=== PATIENT | male | born 1955 | race African-American/Black ===

== ENCOUNTER 2018-05-31 13:33 | Inpatient (IN) ==
[2018-05-31 14:36] LABS: BILIRUBIN URINE NEGATIVE (NEGATIVE); BLOOD URINE TRACE (NEGATIVE); CLARITY CLEAR (CLEAR); COLOR YELLOW; KETONE URINE 2+(Moderate) mg/dL (NEGATIVE); LEUKOCYTES URINE TRACE (NEGATIVE); NITRITE URINE NEGATIVE (NEGATIVE); PROTEIN URINE NEGATIVE (NEGATIVE); SP GRAVITY URINE 1.015; URINE BACTERIA 1+ /HFP; URINE CAST NONE SEEN /LPF; URINE CRYSTAL NONE SEEN /HPF; URINE EPITHELIAL CELLS <10 /HPF (<10); URINE RBC <10 /HPF (<10); URINE SOURCE CLEAN CATCH; URINE WBC <10 /HPF (<10); URINE YEAST NONE SEEN /HPF; UROBILINOGEN URINE NORMAL
[2018-05-31 14:47] LABS: UR AMPHETAMINES QUAL NONE DETECTED (NONE DETECT); UR BARBITUATES QUAL NONE DETECTED (NONE DETECT); UR BENZODIAZEPIN QUAL NONE DETECTED (NONE DETECT); UR CANNABINOIDS QUAL NONE DETECTED (NONE DETECT); UR COCAINE QUAL NONE DETECTED (NONE DETECT); UR METHADONE QUAL NONE DETECTED (NONE DETECT); UR METHAMPHETAMINE QUAL NONE DETECTED (NONE DETECT); UR OPIATES QUAL NONE DETECTED (NONE DETECT); UR OXYCODONE QUAL NONE DETECTED (NONE DETECT); UR PCP QUAL NONE DETECTED (NONE DETECT); UR PROPOXYPHENE QUAL NONE DETECTED (NONE DETECT); UR TCA QUAL NONE DETECTED (NONE DETECT)
[2018-05-31 15:17] LABS: AGAP 15; ALBUMIN 3.1 g/dL (3.5-5.0); ALKALINE PHOSPHATASE 102 U/L (32-122); BUN 9 mg/dL (8-22); CALCIUM 7.9 mg/dL (8.8-10.2); CHLORIDE 93 mmol/L (98-107); COSMO 276; CREATININE 0.9 mg/dL (0.7-1.2); ESTIMATED GFR > 60; GLUCOSE 197 mg/dL (70-104); GOT 22 U/L (10-34); GPT 12 U/L (10-44); POTASSIUM 2.9 mmol/L (3.5-5.1); SODIUM 136 mmol/L (136-145); TCO2 28 mmol/L (25-35); TOTAL PROTEIN 6.5 g/dL (6.3-8.3)
[2018-05-31 15:22] LABS: BASO# 0.07 X1000 (0.0-0.2); BASO% 0.3 % (0.0-0.8); EOS# 0.09 X1000 (0.0-0.7); EOS% 0.3 % (0.0-10.0); HEMATOCRIT 33.9 % (42.0-52.0); HEMOGLOBIN 11.2 g/dL (14.0-18.0); IMM GRAN# 0.12 X1000 (0.0-0.04); IMM GRAN% 0.4 % (0.0-0.5); LYMPH# 3.31 X1000 (1.2-3.4); LYMPH% 12.4 % (20.5-51.1); MCH 24.7 PG (27-31); MCV 74.7 FL (81-99); MONO# 1.01 X1000 (0.11-0.59); MONO% 3.8 % (1.7-9.3); MPV 9.4 FL (7.4-10.4); NEUT# 22.08 X1000 (1.4-6.5); NEUT% 82.8 % (42.2-75.2); PLT 462 X1000 (130-400); RBC 4.54 XMIL (4.7-6.1); RDW 14.9 % (11.5-14.5); WBC 26.68 X1000 (4.8-10.8)
[2018-05-31 15:23] LABS: LYMPHS 12 % (21-51); MICROCYTOSIS 3+; MONO 4 % (1-9); SEGS 84 % (42-75)
[2018-05-31 15:53] LABS: CK INDEX 1.1 (0.0-2.5); CK-MB 6.17 ng/mL (0.0-5.0)
[2018-05-31] MEDS ORDERED: NS 1,000 ML IV ONE ×3 (16:31→20:14)
[2018-05-31] MEDS ORDERED: KLOR-CON PO ONE (16:31)
--- NOTE | 2018-05-31 16:39 | Diag Imaging Result Doc PS360 ---
EXAM: CT HEAD W/O CONTRAST INDICATION: ams TECHNIQUE: This exam was performed using automated exposure control, adjustment of mA or kV according to patient size, and/or use of iterative reconstruction technique. COMPARISON: 07/28/2017 FINDINGS: There is no definite acute infarct given the limited sensitivity of CT versus MRI. There is no discrete intracranial mass, mass effect, or intracranial hemorrhage. There is mild stable chronic mucosal thickening involving the ethmoid sinuses. Surrounding soft tissues and bony structures are essentially unremarkable, otherwise. IMPRESSION: Stable CT head with no evidence of acute pathology. Electronically signed by Trey Maier 05/31/2018 4:37 PM
--- NOTE | 2018-05-31 16:53 | Diag Imaging Result Doc PS360 ---
EXAM: CHEST-2 VIEWS INDICATION: chest pain TECHNIQUE: 2 views COMPARISON: 08/01/2017 FINDINGS: There is stable mild elevation of the right hemidiaphragm and stable linear atelectasis versus scarring at the right lung base. The lungs are grossly clear, otherwise. There is no discrete pleural fluid collection or pneumothorax. The cardiomediastinal silhouette and central vasculature are grossly unremarkable. IMPRESSION: Stable right basilar atelectasis versus scarring. No definite acute pathology, otherwise. Electronically signed by Trey Maier 05/31/2018 4:51 PM
[2018-05-31 17:05] LABS: UR AMPHETAMINES QUAL NONE DETECTED (NONE DETECT); UR BARBITUATES QUAL NONE DETECTED (NONE DETECT); UR BENZODIAZEPIN QUAL NONE DETECTED (NONE DETECT); UR CANNABINOIDS QUAL NONE DETECTED (NONE DETECT); UR COCAINE QUAL NONE DETECTED (NONE DETECT); UR METHADONE QUAL NONE DETECTED (NONE DETECT); UR METHAMPHETAMINE QUAL NONE DETECTED (NONE DETECT); UR OPIATES QUAL NONE DETECTED (NONE DETECT); UR OXYCODONE QUAL NONE DETECTED (NONE DETECT); UR PCP QUAL NONE DETECTED (NONE DETECT); UR PROPOXYPHENE QUAL NONE DETECTED (NONE DETECT); UR TCA QUAL NONE DETECTED (NONE DETECT)
--- NOTE | 2018-05-31 17:11 | PROVIDER DOCUMENTATION ---
HPI-General Adult - General Chief Complaint: General Adult Stated Complaint: STROKE SX Time Seen by Provider: 05/31/18 15:33 Source: patient, family Allergies/Adverse Reactions: Patient Allergies Allergy/AdvReac Type Severity Reaction Status Date / Time No Known Allergies Allergy Verified 05/31/18 13:49 Home Medications: Home Medication List Medication Instructions Recorded Confirmed Last Taken Type NK [No Home Medications] 05/31/18 05/31/18 Unknown History - History of Present Illness -Gen Adult Nature of Presenting Problems: pt arrived to ED today with AMS, pt states he has pain in abdomen and chest. family reports pt has been acting different x 1 week. pt able to answer questions but laughs inappropriately and has lost his sense of balance. pt. family reports pt has been forgetting where he is going and they have been trying for a week to get him to come to the hospital. Review of Systems - Adult - REVIEW OF SYSTEMS - ADULT Constitutional: reports: no symptoms reported Eyes: reports: no symptoms reported Ears, Nose, Mouth & Throat: reports: no symptoms reported Cardiovascular: reports: see HPI, chest pain (atypical, x 1 week, no aggrivating or alleviating factors, sharp generalized) Respiratory: reports: no symptoms reported Gastrointestinal: reports: no symptoms reported Genitourinary: reports: no symptoms reported Musculoskeletal: reports: no symptoms reported Integumentary: reports: no symptoms reported Neurological: reports: see HPI Psychiatric: reports: see HPI Endocrine: reports: no symptoms reported Hematologic/Lymphatic: reports: no symptoms reported Allergic/Immunologic: reports: no symptoms reported All Other Systems: Reviewed and Negative Past History - Adult - PAST MEDICAL HISTORY-ADULT Review of Records: reports: Old Records Reviewed, Nursing Assessment Review, Medications Reviewed Major Childhood Illnesses: reports: denies history Cardiovascular: reports: denies history Respiratory: reports: denies history Gastrointestinal: reports: denies history Obstetrical/Gynecological: reports: denies history Genitourinary: reports: denies history Musculoskeletal: reports: denies history Neurological: reports: denies history Psychiatric: reports: psychiatric problems Endocrine/Immune: reports: denies history Other Conditions: reports: denies history - PRIOR SURGERIES/PROCEDURES Surgical/Procedure History: reports: none - IMMUNIZATION STATUS Childhood Immunizations: See Nurse Assessment Flu Vaccine: See Nurse Assessment - FAMILY HISTORY Family History: CVA/TIA (pt family reports pt has prior stroke) - SOCIAL HISTORY Smoking: denies Substance Use: none/never Alcohol Use Frequency: never Physical Exam-General - PHYSICAL EXAM-ADULT Initial Vital Signs Reviewed: Yes - CONSTITUTIONAL General Appearance: appears well, alert, other (pt has bizrre behavior but is cooperative with intermittant aggitation) - EYES Eyes: PERRL/EOMI, pink conjunctivae. negative: anisocoria, EOM palsy, photophobia, sclera injected, scleral icterus - HEAD, EARS, NOSE, MOUTH & THROAT HENMT: normocephalic/atraumatic, moist mucous membranes, normal ENT inspection, other (abrasion to lips from fall this AM) - NECK Neck: non-tender, full range of motion, supple - RESPIRATORY Respiratory: chest non-tender, lungs clear, normal breath sounds, no pleuratic chest pain, no respiratory distress, no accessory muscle use - CARDIOVASCULAR Cardiovascular: normal peripheral pulses, regular rate, rhythm, no edema - GASTROINTESTINAL (ABDOMEN) Abdominal Exam: normal bowel sounds, non tender, soft - LYMPHATIC Lymphatic: no adenopathy - MUSCULOSKELETAL Back Exam: normal inspection, no CVA tenderness, no vertebral tenderness Extremity: normal range of motion, non-tender - SKIN Integumentary: normal color, normal turgor, warm/dry - NEUROLOGIC Neurologic: grossly normal, no motor/sensory deficits, other (pt has loss of balance and memory deficits). negative: facial droop, focal weakness, motor weakness, sensory deficit - PSYCHIATRIC Psych/Mental Status: normal mood/affect, normal thought content, oriented x 3, other (see HPI) Progress - PLAN OF CARE/RESULTS Progress/Plan/Lab Results: Vital Signs - 8 hr 05/31/18 13:42 Temperature 97.8 F Pulse Rate 102 H Respiratory Rate 20 Blood Pressure 107/75 O2 Sat by Pulse Oximetry 97 Laboratory Results - last 24 hr 05/31/18 05/31/18 05/31/18 14:10 14:10 14:18 WBC RBC Hgb Hct MCV MCH MCHC RDW Std Deviation Plt Count MPV Immature Gran % (Auto) Neut % (Auto) Lymph % (Auto) Turner % (Auto) Eos % (Auto) Baso % (Auto) Immature Gran # (Auto) Neut # (Auto) Lymph # (Auto) Turner # (Auto) Eos # (Auto) Baso # (Auto) Segmented Neutrophils Lymphocytes Monocytes Microcytosis Sodium Potassium Chloride Carbon Dioxide Anion Gap BUN Creatinine Estimated GFR/1.73 m2 BUN/Creatinine Ratio Glucose Calculated Osmolality Calcium Total Bilirubin AST ALT Alkaline Phosphatase Creatine Kinase 538 H Creatine Kinase Index 1.1 CK-MB (CK-2) 6.17 H Troponin T Total Protein Albumin Globulin Albumin/Globulin Ratio Urine Source CLEAN CATCH Urine Color YELLOW Urine Clarity CLEAR Urine pH 5.0 Ur Specific [place] 1.015 Urine Protein NEGATIVE Urine Ketones 2+(Moderate) A Urine Blood TRACE Urine Nitrite NEGATIVE Urine Bilirubin NEGATIVE Urine Urobilinogen NORMAL Urine Microscopic RBC <10 Urine WBC TRACE A Urine Microscopic WBC <10 Ur Epithelial Cells <10 Urine Crystals NONE SEEN Urine Bacteria 1+ Urine Casts NONE SEEN Urine Yeast NONE SEEN Urine Glucose 3+(500 mg/dL) A Urine Opiates Screen NONE DETECTED Ur Oxycodone Screen NONE DETECTED Urine Methadone Screen NONE DETECTED U Propoxyphene Qual NONE DETECTED Ur Barbituates Screen NONE DETECTED Ur Tricyclics Screen NONE DETECTED Ur Phencyclidine Scrn NONE DETECTED Ur Amphetamines Screen NONE DETECTED U Methamphetamines Scrn NONE DETECTED U Benzodiazepines Scrn NONE DETECTED Urine Cocaine Screen NONE DETECTED U Cannabinoids Screen NONE DETECTED 05/31/18 05/31/18 05/31/18 14:18 14:18 14:18 WBC 26.68 H RBC 4.54 L Hgb 11.2 L Hct 33.9 L MCV 74.7 L MCH 24.7 L MCHC 33.0 RDW Std Deviation 14.9 H Plt Count 462 H MPV 9.4 Immature Gran % (Auto) 0.4 Neut % (Auto) 82.8 H Lymph % (Auto) 12.4 L Turner % (Auto) 3.8 Eos % (Auto) 0.3 Baso % (Auto) 0.3 Immature Gran # (Auto) 0.12 H Neut # (Auto) 22.08 H Lymph # (Auto) 3.31 Turner # (Auto) 1.01 H Eos # (Auto) 0.09 Baso # (Auto) 0.07 Segmented Neutrophils 84 H Lymphocytes 12 L Monocytes 4 Microcytosis 3+ Sodium 136 Potassium 2.9 L Chloride 93 L Carbon Dioxide 28 Anion Gap 15 BUN 9 Creatinine 0.9 Estimated GFR/1.73 m2 > 60 BUN/Creatinine Ratio 10 Glucose 197 H Calculated Osmolality 276 Calcium 7.9 L Total Bilirubin 0.40 AST 22 ALT 12 Alkaline Phosphatase 102 Creatine Kinase Creatine Kinase Index CK-MB (CK-2) Troponin T 0.023 Total Protein 6.5 Albumin 3.1 L Globulin 3.0 Albumin/Globulin Ratio 1.0 Urine Source Urine Color Urine Clarity Urine pH Ur Specific [place] Urine Protein Urine Ketones Urine Blood Urine Nitrite Urine Bilirubin Urine Urobilinogen Urine Microscopic RBC Urine WBC Urine Microscopic WBC Ur Epithelial Cells Urine Crystals Urine Bacteria Urine Casts Urine Yeast Urine Glucose Urine Opiates Screen Ur Oxycodone Screen Urine Methadone Screen U Propoxyphene Qual Ur Barbituates Screen Ur Tricyclics Screen Ur Phencyclidine Scrn Ur Amphetamines Screen U Methamphetamines Scrn U Benzodiazepines Scrn Urine Cocaine Screen U Cannabinoids Screen Orders Category Date Time Status Nursing- Obtain EKG once Care 05/31/18 13:52 Active CHEST-2 VIEWS [RAD] Stat Exams 05/31/18 13:[address] HEAD W/O CONTRAST [CT] Stat Exams 05/31/18 15:39 Completed BLOOD CULTURE [BLDCUL] Stat Lab 05/31/18 16:56 Ordered CBC WITH DIFF [HEME] Stat Lab 05/31/18 14:18 Completed CK PROFILE [SP CHEM] Stat Lab 05/31/18 14:18 Completed CMP [COMPREHENSIVE METABOLIC PANEL] [CHEM] Stat Lab 05/31/18 14:18 Completed LACTATE, PLASMA [CHEM] Stat Lab 05/31/18 16:56 Ordered TROPONIN T Stat Lab 05/31/18 14:18 Completed URINE CULTURE [RM] Routine Lab 05/31/18 14:36 Ordered URINE DRUG SCREEN PL Stat Lab 05/31/18 14:10 Completed URINE DRUG SCREEN PL Stat Lab 05/31/18 16:07 Ordered ua [URINALYSIS PL W/POSS RFLX CULT] [URINALYSIS] Stat Lab 05/31/18 14:10 Completed 0.9% Sodium Chloride Inj [Ns] 1,000 ml Med 05/31/18 16:31 Active IV 999 mls/hr Potassium Chloride E.r. [Klor-Con] Med 05/31/18 16:31 Discontinued 40 meq PO NOW ONE EKG [EKG] Stat Ther 05/31/18 15:[address] Jeffrey the need to admit patient for furthur observation, Dr Jeffrey agreed Result Diagrams: 05/31/18 14:18 05/31/18 14:18 - REASSESSMENT Reassessment #1 Status: unchanged - XRAY 1 XRAY Study: Chest Comparison with other Films: no changes (stable rt side atelectasis) - CT/MRI 1 CT Study: Head Impression: Normal Comparison with other Films: no changes CT Results: NAD - CONSULTS/PCP/HOSPITALIST Notification #1 *Consult/PCP/Hospitalist*: Dr Jeffrey Time Discussed: 18:48 Reason/Comments: admit to [facility] floor Consult Disposition: Admit Departure - Departure Date of Disposition Decision: 05/31/18 Time of Disposition Decision: 18:48 DIAGNOSIS: Encephalopathy acute, Chest pain, Leukocytosis, SIRS (systemic inflammatory response syndrome) Disposition: HOME 01 Certified Medical Emergency: Emergent Condition: Serious Referrals and Follow-Ups: None,PCP [Primary Care Provider] - - Critical Care Note This patient required my direct & personal management of CC.: No Attestation - Physician/ ALEXIS Attestation Patient care was provided by Advanced Practice Provider:: Yes Advanced Practice Provider:: Amena Lindquist Advanced Practice Provider documentation review:: The Mid-level provider documentation, treatment plan and medical decision making was reviewed by the physician who agrees with all treatment and medical decision making by the MLP. The physician spent face to face time with patient:: No Advanced Practice Provider documentation review:: Supervising physician onsite and consulted in the evaluation and care of this patient. The physician did not have a face to face encounter with the patient. - NIH Stroke Scale NIH Type: Initial Evaluation Level of Consciousness: 0-Alert LOC Questions (ask month and age): 0-Answers Both Correctly LOC Commands (ask to open & close eyes;make a fist, let go): 0-Obeys Both Correctly Best Gaze (horizontal eye movement): 0-Normal Visual (use finger movement, counting or visual threat): 0-No Visual Loss Facial Palsy (show teeth or raise eyebrows & close eyes tght: 0-Symmetrical Movement Motor Function-left arm: 0-Normal Motor Function-right arm: 0-Normal Motor Function-left le-Normal Motor Function-right le-Normal Limb Ataxia(yandfx-wgij-yrudge, or heel to tse): 2-Present in two limbs Sensory(pin prick to face,arms,trunk,legs-compare side/side): 0-No Ataxia Best Language(name item/read sentence.Ex-Down to Earth): 0-No Aphasia Dysarthria(Pt read words or say words Ex.Mama,Tip-Top,Thanks: 0-Normal Articulation Extinction and Inattention: 0-Normal NIH Total Score: 2 NIH Scale Untestable Comment: some ataxia may be due to aggitation and impulsive movments Modified [place] Score Criteria: 3-moderate disability (pt family reports pt has fallen a few times due to loss of balance and forgets where he is going)
[2018-05-31] MEDS ORDERED: ZOSYN 3.375 GM in NS 50 ML IV ONE (17:15)
[2018-05-31] MEDS ORDERED: VANCOMYCIN 1 GM/NS 1 GM/250 ML IVPB IV ONE (17:15)
[2018-05-31] MEDS ORDERED: ATIVAN IV ONE (17:19)
[2018-05-31] MEDS ORDERED: ZOFRAN IV PRN (20:14)
[2018-05-31] MEDS ORDERED: TYLENOL PO PRN (20:14)
[2018-05-31] MEDS ORDERED: STERILE WATER INJ. INJ PRN (20:22)
[2018-05-31] MEDS: GEODON IM PRN (21:12)
[2018-06-01] MEDS: ROCEPHIN 1 GM in NS 50 ML IV SCH (01:00)
[2018-06-01] MEDS: GEODON IM PRN ×2 (04:20→23:14)
[2018-06-01 07:52] LABS: ALBUMIN 2.6 g/dL (3.5-5.0); ALKALINE PHOSPHATASE 88 U/L (32-122); DIRECT BILIRUBIN < 0.20 mg/dL (0.00-0.20); GOT 15 U/L (10-34); GPT 10 U/L (10-44); TOTAL PROTEIN 5.5 g/dL (6.3-8.3)
[2018-06-01 10:16] LABS: BASO# 0.05 X1000 (0.0-0.2); BASO% 0.2 % (0.0-0.8); EOS# 0.13 X1000 (0.0-0.7); EOS% 0.6 % (0.0-10.0); HEMATOCRIT 31.1 % (42.0-52.0); HEMOGLOBIN 10.4 g/dL (14.0-18.0); IMM GRAN# 0.04 X1000 (0.0-0.04); IMM GRAN% 0.2 % (0.0-0.5); LYMPH# 1.47 X1000 (1.2-3.4); LYMPH% 7.2 % (20.5-51.1); MCH 25.6 PG (27-31); MCHC 33.4 g/dL (33-37); MCV 76.6 FL (81-99); MONO# 0.77 X1000 (0.11-0.59); MONO% 3.8 % (1.7-9.3); MPV 9.9 FL (7.4-10.4); NEUT# 17.94 X1000 (1.4-6.5); PLT 398 X1000 (130-400); RBC 4.06 XMIL (4.7-6.1); RDW 15.2 % (11.5-14.5)
[2018-06-01 10:22] LABS: AGAP 14; BUN 7 mg/dL (8-22); CALCIUM 7.2 mg/dL (8.8-10.2); CHLORIDE 99 mmol/L (98-107); COSMO 288; CREATININE 0.7 mg/dL (0.7-1.2); ESTIMATED GFR > 60; GLUCOSE 284 mg/dL (70-104); SODIUM 140 mmol/L (136-145); TCO2 27 mmol/L (25-35)
[2018-06-01 10:30] LABS: EOS 2 % (1-10); LYMPHS 5 % (21-51); MONO 4 % (1-9); SEGS 89 % (42-75)
--- NOTE | 2018-06-01 10:32 | HISTORY AND PHYSICAL ---
PRIMARY CARE PHYSICIAN: Unknown. HISTORY OF PRESENTING ILLNESS: This is a 63-year-old, male who presents to [facility] ER with family who reports he has had altered mental status and has been "acting different for about a week". Answers questions appropriately in the ER but laughed inappropriately. Had lost his sense of balance. Had been forgetting where he was going and family had been trying for a week to get him to come to the hospital. His workup showed a white blood cell count of 26.68, a potassium of 2.9, a creatine kinase of 538 with a CK-MB of 6.17, but a negative troponin at 0.023. Urinalysis was negative. Urine drug screen was negative x2 different samples. Serum alcohol level showed none detected. CT of the head was stable. CT with no evidence of acute pathology. His chest x-ray showed a stable right basilar atelectasis versus scarring but no definite acute pathology otherwise. He was admitted for further evaluation and treatment. Then this morning, prior to being seen, he became agitated and was trying to get up, was belligerent, fighting staff, confused, very disoriented, would not get back in the bed initially. The family was at bedside. He is noted when he drinks any fluids to start coughing and becomes choked. He has had a history of a CVA in June of 2017. He was given Geodon 10 mg IM. The patient is now asleep and unable to answer any of my questions. He does have a family member at the bedside that has limited knowledge in his care but is a family member, so he has been admitted for further evaluation and treatment. PAST MEDICAL HISTORY: CVA and diabetes type 2. PAST SURGICAL HISTORY: None. FAMILY HISTORY: Reviewed and noncontributory. SOCIAL HISTORY: Currently lives with his . Denies any tobacco, alcohol, or illicit drug use. ALLERGIES: He has no known drug allergies. HOME MEDICATIONS: None are listed currently. I will have the nurse to check and make sure an update and confirm his home medications. LABORATORY DATA: Showed a white blood cell count of 26.68, hemoglobin 11.2, hematocrit 33.9, platelets 462,000. Sodium was 136, potassium 2.9, chloride 93, CO2 28, BUN of 9, creatinine 0.9, glucose 197. Creatine kinase was 538, CK-MB of 6.17, with a negative troponin of 0.023. Plasma lactate of 1.4. Free T4 of 1.10. Urinalysis was negative except for 1+ bacteria. Urine drug screens x2 samples were all negative. Serum alcohol level showed none detected. CT of the head showed a stable CT of the head with no evidence of acute pathology. Chest x-ray showed a stable right basilar atelectasis versus scarring. No definite acute pathology otherwise. REVIEW OF SYSTEMS: Unable to obtain from patient at this time. PHYSICAL EXAMINATION: VITAL SIGNS: On arrival, he had a temperature of 97.8 degrees, a pulse of 102, respirations 20, blood pressure 107/75, saturating 97% on room air. GENERAL: This is a 63-year-old, male who is lying in the bed and is lethargic due to receiving some Geodon this morning due to agitation and combativeness. HEENT: Appears normocephalic, atraumatic. Normal ENT inspection. Oropharynx and nares are clear. Eyes: Pupils are equal, round, and reactive to light and accommodation. Unable to assess extraocular movements at this time. NECK: Normal inspection. Normal range of motion. LUNGS: Clear to auscultation bilaterally with equal lung expansion and chest wall movement. HEART: With regular rate and rhythm. No murmurs, rubs, or gallops. ABDOMEN: Soft, nontender, nondistended. Bowel sounds are present x4 quadrants. MUSCULOSKELETAL: He had 5/5 strength according to staff as he was up trying to leave his room and was agitated and fighting the staff this morning. NEUROLOGICAL: Unable to obtain at this time due to being lethargic after receiving medication for his agitation. ASSESSMENT: 1. Altered mental status. 2. Leukocytosis. 3. Hypokalemia. 4. Previous cerebrovascular accident with dysphagia. PLAN: He was admitted to the medical unit. Placed on aspiration precautions. Pattern blood sugars with sliding scale insulin. Placed on telemetry. O2 per protocol. He is on a clear liquid diet but I think he is going to need a speech therapy consult in the a.m. to ensure that he is not doing any aspirating. Blood cultures x2 are pending. We will check a C-reactive protein, folate, hepatic function. I am going to recheck a CBC and a BMP this morning. Check iron studies. Placed on Ativan 2 mg IV q.4 hours p.r.n., Zofran 4 mg IV q.4 hours p.r.n., Rocephin 1 gram IV q.24, and Geodon 10 mg IM q.4 hours p.r.n. He did receive potassium 40 mEq p.o. x1 in the emergency room. Again, we will have nursing to update and confirm any home medications he may take if possible. Further orders after being seen by attending. I also think we need to check an MRI of the brain with and without contrast in the a.m. Dictated by ROLA Oneill for Moi Jeffrey MD cc: ROLA Oneill MD
[2018-06-01] MEDS ORDERED: POTASSIUM CHLORIDE 20% LIQUID PO ONE (10:36)
[2018-06-01] MEDS: NS + KCL 40 MEQ 1,000 ML IV SCH (14:53)
[2018-06-01 15:21] LABS: C REACTIVE PROT QUANT 103.52 mg/L (0.00-5.00)
--- NOTE | 2018-06-01 17:21 | PROGRESS NOTE ---
DATE: 06/01/2018 SUBJECTIVE: The patient has no major complaints. OBJECTIVE: Vital signs: Blood pressure is 135/73, heart rate 104, respiratory rate of 20, temperature 98.4. Cardiovascular: Regular rate and rhythm. Pulmonary: Bilateral breath sounds clear to auscultation. Gastrointestinal: Soft, nontender, nondistended. Bowel sounds are positive. LABORATORY DATA: 1. White count of 20, hemoglobin 10, hematocrit 31, platelets were stable. Potassium is 3. ASSESSMENT AND PLAN: 1. In any case, the patient has acute encephalopathy, really a nonfocal neurological exam. It is just not clear what is going on. I did see him yesterday evening. H P is dated today, though. He has a previous CVA so clinically most likely, I think it would be a recurrent CVA with some sort of vascular dementia. His head CT is negative. He also has some unexplained leukocytosis. I do not think he has got any encephalitis. He has no fever. No neck pain. No headache. He is just kind of confused, and he has just had a profound behavioral change that has impacted his psychiatric/psychological functioning. He is normal. He is not an abnormal fellow. He does have some I think stroke-related weakness, but he has never had a personality change, and now, he has been arrested by the police on concern over public intoxication. He per family does not abuse any medications. Urine drug screen here was negative. Very unclear what is causing this. I did pursue MRI, and I think unfortunately not to tax the Neurology service, but I think they need to evaluate him because this is a complicated case, and we will attempt to get a consult tomorrow. 2. Leukocytosis. It is not clear where the etiology is unless it is primarily associated with what else is going on with him. I have empirically started Rocephin, but chest x-ray, blood cultures, and urine are all clear. He does have very elevated CRP. Again, I do not think this is meningeal encephalitis. If he has fever, that may change our etiology. I am going to pursue the CT of the chest. If that is unrevealing, then we will do an abdominal and pelvic CT to evaluate for anything else there, but this is a very unusual case. 3. We have had to sedate him because we cannot keep him in the bed. He wants to go home, but his family says it is not safe for him at home, and they were concerned about violence. Once he has been medically cleared and he still has behavioral issues, we may have to get psychiatric input. cc: Moi Jeffrey MD MTDD
[2018-06-01] MEDS: ATIVAN IV PRN (19:50)
[2018-06-02] MEDS: ROCEPHIN 1 GM in NS 50 ML IV SCH (00:06)
[2018-06-02] MEDS: ATIVAN IV PRN ×4 (02:58→23:01)
[2018-06-02] MEDS: NS + KCL 40 MEQ 1,000 ML IV SCH ×3 (04:14→17:33)
[2018-06-02 06:40] LABS: BASO# 0.04 X1000 (0.0-0.2); BASO% 0.3 % (0.0-0.8); EOS# 0.12 X1000 (0.0-0.7); EOS% 0.8 % (0.0-10.0); HEMATOCRIT 31.1 % (42.0-52.0); HEMOGLOBIN 9.9 g/dL (14.0-18.0); IMM GRAN# 0.04 X1000 (0.0-0.04); IMM GRAN% 0.3 % (0.0-0.5); LYMPH# 1.82 X1000 (1.2-3.4); LYMPH% 12.2 % (20.5-51.1); MCH 24.6 PG (27-31); MCHC 31.8 g/dL (33-37); MCV 77.4 FL (81-99); MONO# 0.82 X1000 (0.11-0.59); MONO% 5.5 % (1.7-9.3); MPV 9.8 FL (7.4-10.4); NEUT# 12.08 X1000 (1.4-6.5); NEUT% 80.9 % (42.2-75.2); PLT 471 X1000 (130-400); RBC 4.02 XMIL (4.7-6.1); RDW 15.3 % (11.5-14.5); WBC 14.92 X1000 (4.8-10.8)
[2018-06-02 07:21] LABS: IRON SATURATION 9 %; TIBC 191 ug/dL; TOTAL IRON 18 ug/dL (53-167); UNBOUND IRON 173 ug/dL (112-346)
[2018-06-02 07:24] LABS: AGAP 10; BUN 3 mg/dL (8-22); CALCIUM 7.4 mg/dL (8.8-10.2); CHLORIDE 103 mmol/L (98-107); COSMO 289; CREATININE 0.8 mg/dL (0.7-1.2); ESTIMATED GFR > 60; GLUCOSE 240 mg/dL (70-104); POTASSIUM 3.2 mmol/L (3.5-5.1); SODIUM 143 mmol/L (136-145); TCO2 30 mmol/L (25-35)
[2018-06-02] MEDS ORDERED: KLOR-CON PO ONE (07:38)
--- NOTE | 2018-06-02 08:32 | Diag Imaging Result Doc PS360 ---
CT THORAX W/CONTRAST - 06/02/2018 INDICATION: pneumonia COMPARISON: 07/28/2017, 05/31/2018 FINDINGS: There are trace bilateral pleural effusions. Heart size is normal with no pericardial effusion. There is some slight calcified vascular disease of the descending aortic arch. There are some shotty mediastinal lymph nodes but no focal adenopathy. There is bilateral gynecomastia. There is some faint hazy infiltrate throughout the right upper lobe and both lower lobes. There is wall thickening of the esophagus compatible with esophagitis. The gallbladder demonstrates severe wall thickening and some surrounding inflammation. There is no biliary dilation in the liver. Upper abdominal images are otherwise unremarkable. There are moderate degenerative changes of the spine. No acute or suspicious bony lesion. IMPRESSION: 1. Severely abnormal gallbladder with wall thickening and inflammation. Cholecystitis is suspected. 2. Faint nonspecific bilateral infiltrates. 3. Trace bilateral pleural effusions. 4. Wall thickening throughout the esophagus suggesting esophagitis. This exam was performed using automated exposure control, adjustment of mA or kV according to patient size, and/or use of iterative reconstruction technique Electronically signed by Alvin Courtney 06/02/2018 8:30 AM
[2018-06-02] MEDS ORDERED: SODIUM CHLORIDE 0.9% INJ SCH (09:15)
[2018-06-02] MEDS ORDERED: PROTONIX IV SCH (09:15)
--- NOTE | 2018-06-02 09:30 | Diag Imaging Result Doc PS360 ---
EXAM: MRI BRAIN W/WO CONTRAST HISTORY: AMS TECHNIQUE: Multisequence multiplanar MRI of the brain with and without contrast. COMPARISON: CT brain 05/31/2018, MRI brain 07/29/2017 FINDINGS: There are no extra-axial collections. There is no abnormal signal within the brainstem, cerebellum, or cerebral hemispheres. Diffusion images show no evidence for acute infarct. Susceptibility images show no evidence for hemorrhage. Stable mucosal disease involving ethmoid sinuses and mucous retention cyst or polyp left maxillary sinus. There are no abnormal regions of contrast enhancement. IMPRESSION: Paranasal sinus disease. No acute intracranial abnormality. Electronically signed by Celia Montes 06/02/2018 9:27 AM
--- NOTE | 2018-06-02 09:32 | EKG Report ---
Test Performed on : 05/31/2018 6:03:13 PM Test Reason : CP Blood Pressure : / mmHG Vent. Rate : 097 BPM Atrial Rate : 097 BPM P-R Int : 146 ms QRS Dur : 092 ms QT Int : 386 ms P-R-T Axes : 068 016 017 degrees QTc Int : 490 ms Normal sinus rhythm. Possible Left atrial enlargement Prolonged QT Abnormal ECG When compared with ECG of 31-MAY-2018 13:59, (Unconfirmed) No significant change was found Unconfirmed Result
--- NOTE | 2018-06-02 09:32 | EKG Report ---
Test Performed on : 05/31/2018 1:59:39 PM Test Reason : CP Blood Pressure : / mmHG Vent. Rate : 093 BPM Atrial Rate : 093 BPM P-R Int : 140 ms QRS Dur : 098 ms QT Int : 378 ms P-R-T Axes : 062 000 030 degrees QTc Int : 469 ms Normal sinus rhythm. Possible Left atrial enlargement Borderline ECG When compared with ECG of 01-AUG-2017 14:00, No significant change was found Unconfirmed Result
[2018-06-02] MEDS ORDERED: ZOSYN 3.375 GM in NS 50 ML IV SCH (12:00)
[2018-06-02] MEDS ORDERED: ZOFRAN IV PRN ×2 (15:22→15:24)
[2018-06-02] MEDS ORDERED: TYLENOL PO PRN ×2 (15:22→15:23)
[2018-06-02] MEDS ORDERED: STERILE WATER INJ. INJ PRN (15:22)
[2018-06-02] MEDS: ZOSYN 3.375 GM in NS 50 ML IV SCH ×2 (18:32→20:14)
--- NOTE | 2018-06-02 18:51 | GENERAL SURGERY CONSULTATION ---
DATE: 06/02/2018 REASON FOR CONSULTATION: Cholecystitis and leukocytosis. HISTORY OF PRESENT ILLNESS: This is a 63-year-old male who reports upper abdominal pain over the last week and a half. It comes and goes. He denies worsening with eating. No apparent relieving factors. He does report some associated nausea and vomiting. Otherwise, he was brought to the hospital this morning with some altered mental status. He seemed to be forgetful, laughing inappropriately, and somewhat disoriented. Further evaluation has included labs, with a CBC and complete metabolic profile. In addition, there has been imaging of his head and chest, showing no acute pathology in the brain or chest. However, the gallbladder does appear to be severely inflamed and thickened. I was consulted for further evaluation. PAST MEDICAL HISTORY: Somewhat limited, as the patient seems to have a hard time remembering his history, but he does report a stroke last year. Also, he is noted to have diabetes. PAST SURGICAL HISTORY: None. FAMILY HISTORY: Unknown. SOCIAL HISTORY: Reportedly, no tobacco, alcohol, or illicit drug use. ALLERGIES: No known drug allergies. HOME MEDICATIONS: None listed. CURRENT MEDICATIONS: Tylenol, Ativan, Zofran, Protonix, Zosyn, Geodon. REVIEW OF SYSTEMS: Ten systems negative, except as noted above. PHYSICAL EXAMINATION: Vital Signs: Temperature 97.6 degrees, pulse 91, respirations 16, blood pressure 129/72. General: He is awake and alert. He appears to be uncomfortable, but nontoxic- appearing. HEENT: Normocephalic, atraumatic. Extraocular muscles appear to be intact. Pupils are equal and round. Neck: Supple. No thyromegaly. Cardiovascular: Regular rate and rhythm. Respiratory: Bilateral breath sounds. No work of breathing. GI: Soft, nontender, nondistended. No organomegaly or mass. Extremities: He moves all extremities equally and well. Skin: Warm and dry. No rash. LABORATORY STUDIES: White blood cell count 26,000 on admission, now 15,000. Hemoglobin 9.9, hematocrit 31, platelet count 471,000. Metabolic profile reviewed and notable for blood sugars in the 200s to 300s. C-reactive protein 103. His liver function tests are normal. Urine drug screen is negative. Serum alcohol level is negative. IMAGING STUDIES: As described above in HPI. ASSESSMENT AND PLAN: A 63-year-old male with abdominal pain, leukocytosis, and imaging strongly suggestive of acute cholecystitis. I am going to obtain an ultrasound in the morning to confirm, and we are planning a probable laparoscopic cholecystectomy tomorrow afternoon, which I will discuss further with him tomorrow. cc: Domingo Marshall MD
[2018-06-02] MEDS: PROTONIX IV SCH (20:13)
[2018-06-02] MEDS: GEODON IM PRN (20:14)
--- NOTE | 2018-06-02 22:46 | PROGRESS NOTE ---
DATE: 06/02/2018 SUBJECTIVE: The patient is still confused, disoriented, although he is starting to be more calm per the staff. The patient himself has no new complaints. OBJECTIVE: Vital Signs: Temperature 98, pulse 104, respiratory rate 16, BP 143/53. General: The patient is awake. He is in no current respiratory distress. HEENT: Normocephalic. Neck: Supple. Cardiovascular: Regular rate. Chest: Clear, no crackles, nonlabored. Abdomen: Soft, nondistended. Extremities: Moves all extremities. Neurologic: The patient is still confused and disoriented. He is much more calm than he was. ASSESSMENT: 1. Altered mental status. 2. Leukocytosis, white count still elevated at 14.2. 3. Hypokalemia. 4. Cholecystitis. 5. Cerebrovascular accident with dysphagia. PLAN: We will continue the patient in the hospital. Continue antibiotics. We will transfer to [facility] to allow surgery to evaluate his acute cholecystitis, and we will follow. cc: Victor Hugo Barrera MD
[2018-06-03] MEDS: ATIVAN IV PRN ×4 (02:48→19:37)
[2018-06-03] MEDS: ZOSYN 3.375 GM in NS 50 ML IV SCH ×6 (03:50→22:18)
[2018-06-03] MEDS: NS + KCL 40 MEQ 1,000 ML IV SCH ×2 (04:10→17:15)
[2018-06-03] MEDS: GEODON IM PRN ×2 (05:37→22:13)
[2018-06-03] MEDS: STERILE WATER INJ. INJ PRN (05:37)
[2018-06-03 06:27] LABS: BASO# 0.04 X1000 (0.0-0.2); BASO% 0.4 % (0.0-0.8); EOS% 2.1 % (0.0-10.0); HEMATOCRIT 31.6 % (42.0-52.0); HEMOGLOBIN 9.9 g/dL (14.0-18.0); IMM GRAN# 0.03 X1000 (0.0-0.04); IMM GRAN% 0.3 % (0.0-0.5); LYMPH# 1.65 X1000 (1.2-3.4); LYMPH% 17.3 % (20.5-51.1); MCH 24.6 PG (27-31); MCHC 31.3 g/dL (33-37); MCV 78.4 FL (81-99); MONO# 0.55 X1000 (0.11-0.59); MONO% 5.8 % (1.7-9.3); MPV 9.5 FL (7.4-10.4); NEUT# 7.09 X1000 (1.4-6.5); NEUT% 74.1 % (42.2-75.2); PLT 487 X1000 (130-400); RBC 4.03 XMIL (4.7-6.1); RDW 15.1 % (11.5-14.5); WBC 9.56 X1000 (4.8-10.8)
[2018-06-03 06:49] LABS: AGAP 12; ALBUMIN 2.8 g/dL (3.5-5.0); ALKALINE PHOSPHATASE 80 U/L (32-122); BUN 3 mg/dL (8-22); CALCIUM 7.7 mg/dL (8.8-10.2); CHLORIDE 103 mmol/L (98-107); COSMO 290; CREATININE 0.8 mg/dL (0.7-1.2); ESTIMATED GFR > 60; GLUCOSE 190 mg/dL (70-104); GOT 10 U/L (10-34); GPT 9 U/L (10-44); POTASSIUM 3.6 mmol/L (3.5-5.1); SODIUM 145 mmol/L (136-145); TCO2 30 mmol/L (25-35); TOTAL BILIRUBIN 0.32 mg/dL (0.20-1.00); TOTAL PROTEIN 5.6 g/dL (6.3-8.3)
[2018-06-03] MEDS: SODIUM CHLORIDE 0.9% INJ SCH ×2 (08:23→22:18)
[2018-06-03] MEDS: PROTONIX IV SCH ×2 (08:23→22:18)
--- NOTE | 2018-06-03 08:57 | GENERAL SURGERY PROGRESS NOTE ---
DATE: 06/03/2018 SUBJECTIVE: He continues to complain of epigastric pain throughout the night. No vomiting. He also was noted to be somewhat agitated and actively trying to leave the hospital. This did require some sedation overnight. OBJECTIVE: Vital Signs: He is afebrile. Pulse 91-105, blood pressure 129/72, O2 saturation 95%. General: He is awake and alert. He is mildly confused but seems to reorient fairly well. CV: Regular rate and rhythm. Respiratory: No work of breathing. Gastrointestinal: Soft, nondistended. He is tender in the epigastrium with some guarding in this area. Laboratory: White blood cell count 9.5, hemoglobin 9.9, hematocrit 31.6. Electrolytes reviewed and notable for blood sugars around 200. LFTs remain normal. ASSESSMENT/PLAN: A 63-year-old male with confusion, altered mental status, abdominal pain, probable acute cholecystitis. We are obtaining an ultrasound this morning for confirmation and likely planning a laparoscopic cholecystectomy this afternoon. I have discussed the surgery, risks, and benefits with him and his including bleeding, infection, injury to surrounding organs, and other imponderables. They understand and agree to proceed. cc: Domingo Marshall MD
--- NOTE | 2018-06-03 09:59 | Diag Imaging Result Doc PS360 ---
US ABDOMEN-COMPLETE - 06/03/2018 INDICATION: cholecystitis COMPARISON: CT from 06/02/2018 FINDINGS: There is a large shadowing stone in the gallbladder. This measures about 2 cm. This is at the gallbladder neck. The gallbladder is somewhat distended. There is severe gallbladder wall thickening. Sonographic Weinstein sign is apparently negative. The liver is mildly fatty. The pancreas, spleen, and both kidneys are normal. Common bile duct measures 6 mm. Aorta, IVC, and main portal vein are patent. IMPRESSION: Large shadowing stone at the gallbladder neck. Mild gallbladder distention. Severe wall thickening of the gallbladder. Cholecystitis is suggested. Electronically signed by Alvin Courtney 06/03/2018 9:57 AM
[2018-06-03] MEDS ORDERED: SODIUM CHLORIDE 0.9% ONE (12:12)
[2018-06-03] MEDS ORDERED: LR 1,000 ML ONE (12:12)
[2018-06-03] MEDS ORDERED: SENSORCAINE 0.5%-EPI 1:200,000 ONE (12:12)
[2018-06-03] MEDS ORDERED: DIPRIVAN 1% ONE (12:27)
[2018-06-03] MEDS ORDERED: XYLOCAINE-MPF 2% ONE (12:30)
[2018-06-03] MEDS ORDERED: QUELICIN (DOSE) ONE ×2 (12:30)
[2018-06-03] MEDS ORDERED: NORCURON ONE ×2 (12:30→13:36)
[2018-06-03] MEDS ORDERED: SODIUM CHLORIDE 0.9% 10 ML ONE ×2 (12:30→13:36)
[2018-06-03] MEDS ORDERED: FENTANYL ONE (12:33)
[2018-06-03] MEDS ORDERED: EPHEDRINE ONE (13:20)
--- NOTE | 2018-06-03 13:27 | PROGRESS NOTE ---
DATE: 06/03/2018 SUBJECTIVE: The patient is a little bit confused. Reports mild abdominal pain and he points at the epigastric area. He has been somewhat restless overnight. OBJECTIVE: Vital Signs: Temperature 97.8 degrees, heart rate 84, respiratory rate 16, blood pressure 152/80, O2 saturation 94% on room air. General Examination: This is a 63-year-old, male, lying in bed, in no acute distress. Cardiovascular Examination: S1 and S2 heard. No murmurs, gallops, or rubs. Regular rate and rhythm. Respiratory Examination: Clear bilaterally to auscultation. No work of breathing or using accessory muscles. Abdomen: Soft. Mild tenderness to palpation in the right upper quadrant. No signs of peritoneal irritation. No rebound. Extremities: No clubbing, cyanosis, or edema. Peripheral pulses present in both legs. Neurologic Examination: The patient is still confused and disoriented. Moves 4 extremities spontaneously. Laboratory Data: White cell count 9.46, hemoglobin 9.9, hematocrit 31.6, platelets 487,000. Normal BMP except glucose 190. ASSESSMENT/PLAN: 1. Acute cholecystitis. The patient has been transferred from [facility] over here for that possibility. Abdominal ultrasound show large shadowing stone at the gallbladder neck with mild gallbladder distention and severe wall thickening of the gallbladder so Dr. Marshall from general surgery has been consulted and he is planning to take him to the operating room this afternoon. We will follow recommendations. 2. Hypokalemia. That condition is completely resolved. 3. Cerebrovascular accident with dysphagia. Apparently, there is an order for a consult for neurology from yesterday. There is an MRI that had been done yesterday as well which basically showed paranasal sinus disease with no acute intracranial abnormality. Patient has a history of psychiatric disorders so I think it is difficult to evaluate him objectively. In any case, we will continue to monitor. cc: Jorge Rangel MD
[2018-06-03] MEDS ORDERED: DECADRON ONE (13:28)
[2018-06-03] MEDS ORDERED: ZOFRAN ONE (13:28)
[2018-06-03 13:43] LABS: HEMOGLOBIN A1C 12.1 % (4.8-6.0)
[2018-06-03] MEDS ORDERED: ROBINUL ONE (14:23)
[2018-06-03] MEDS ORDERED: NEOSTIGMINE ONE (14:23)
--- NOTE | 2018-06-03 14:24 | Diag Imaging Result Doc PS360 ---
EXAM: OPERATIVE CHOLANGIOGRAM INDICATION: GALLBLADDER DX TECHNIQUE: COMPARISON: None. FINDINGS: A single spot fluoroscopic image of the opacified common bile duct was provided, which was performed intraoperatively during cholecystectomy by Dr. Domingo Marshall. The common bile duct appears normal in caliber. No filling defects or strictures are identified. There is normal egress of contrast into the small bowel. IMPRESSION: As above. Please correlate with live fluoroscopic imaging. Electronically signed by Trey Maier 06/03/2018 2:22 PM
[2018-06-03] MEDS ORDERED: NARCAN ONE (15:21)
--- NOTE | 2018-06-03 15:22 | OPERATIVE NOTE ---
PROCEDURE DATE: 06/03/2018 PREOPERATIVE DIAGNOSIS: Acute cholecystitis. POSTOPERATIVE DIAGNOSIS: Acute cholecystitis. PROCEDURE: Laparoscopic cholecystectomy with operative cholangiogram. SURGEONS: Dr. Domingo Marshall. SENIOR INTERACTIVE PRODUCER: BOBBI Armando. ANESTHESIA: General. ESTIMATED BLOOD LOSS: 50 mL. COMPLICATIONS: None apparent. SPECIMENS: Gallbladder. FINDINGS: The gallbladder was acutely inflamed with a large gallstone. The cholangiogram revealed normal proximal hepatic radicles as well as distal common bile duct with flow of contrast into the duodenum. No filling defects or stenoses were appreciated. TECHNIQUE: The patient was brought to the operating room and placed supine on the table. General anesthesia was induced. He was prepped and draped in usual sterile fashion. 0.5% Marcaine with epinephrine was used to anesthetize our incisions. An 11 mm incision was made above the umbilicus. The fascia was exposed and incised sharply. Entry into the peritoneal cavity was obtained under direct vision with the Optiview device. Pneumoperitoneum was established. An 11 mm incision was made above the umbilicus. The fascia was exposed and incised sharply. Entry into the peritoneal cavity was obtained under direct vision with the Optiview device. Pneumoperitoneum was established. The camera was inserted. There was no evidence of injury to underlying structures. He was placed in reverse Trendelenburg and left rotation. Three 5 mm incision ports were placed across the epigastric right upper quadrant per usual routine. The dome of the gallbladder was grasped by the business services assistant with an Allis clamp and lifted up superiorly. Adhesions of the omentum were taken down off the gallbladder and liver surface with scissors and cautery, fully exposing the gallbladder. The gallbladder was lifted up superiorly by the business services assistant. Adhesions of the duodenum to the gallbladder were lysed with scissors and I then proceeded to dissect out the triangle of Calot using a Kittner dissector and Maryland forceps until the critical view was obtained. The gallbladder-liver junction was seen. There were only two structures entering the gallbladder, the cystic duct and cystic artery. The duct was clipped on the gallbladder side and a ductotomy was made proximal to this with scissors. The 14-gauge Angiocath was passed through the right upper quadrant. The taut cholangiogram catheter was passed through this into the cystic duct and held in place with a clip. The cholangiogram was performed with findings as noted above. The clip, catheter and Angiocath were removed. Two clips were placed on the proximal cystic duct and it was divided distal to these with scissors. The cystic artery was clipped proximally and distally and incised between with scissors. The gallbladder was removed from the liver bed using hook cautery obtaining hemostasis along the way. The gallbladder was placed in an EndoCatch bag. I then irrigated copiously with saline. There was no signs of any bleeding from the liver bed. All of the old blood and irrigation were essentially suctioned out. I then brought the gallbladder and bag up through the umbilical port site and removed the ports and desufflated the abdomen. The umbilical skin and fascia was incised for about 1.5 cm to allow for removal of the gallbladder. I then closed the fascia with a running 0 Vicryl. The skin was closed with 4-0 subcuticular, Monocryl and Steri-Strips. There were no apparent complications. He was awakened in stable condition and transferred to the recovery room. cc: Domingo Marshall MD MTDBi
[2018-06-03] MEDS ORDERED: MORPHINE IV PRN (16:57)
[2018-06-03] MEDS ORDERED: NORCO-10 PO PRN (16:57)
[2018-06-03] MEDS ORDERED: MORPHINE ONE (17:53)
--- NOTE | 2018-06-03 17:57 | CONSULTATION ---
DATE OF CONSULTATION: 06/03/2018 REASON FOR CONSULTATION: Altered mental status. HISTORY OF PRESENT ILLNESS: This is a 63-year-old black, male who was admitted for complaints of altered mental status, unsteady gait and abdominal pain for 2 weeks. History is from attentive family, as the patient cannot provide a coherent history. states his symptoms began with intense abdominal pain and unsteady gait 2 weeks ago. The symptoms have progressed since onset, and he has had a change in his mental status. He is typically polite and calm but in the last 2 weeks has become belligerent and rude. He has been talking essentially nonstop , interrupting people, cursing. He comes to his sister's home and knocks pictures off of her wall. He did not recognize, I believe it was his niece, at one point and did not know why she was in the house. He has been driving his vehicle back and forth to the store repeatedly and also took someone's lawnmower and has been riding it around. He refused to go to the hospital, but finally they were able to bring him in. Since hospitalized, he has been agitated, trying to get out of bed, cursing, requiring medications to calm him. He has been afebrile. He was diagnosed with cholecystitis, and there is plan for surgery today. A contrasted MRI of the brain was unremarkable. He has been able to sleep off and on per the but wakes up repeatedly. He has no history of major head trauma, though he apparently had a stroke last year that involved some numbness of his right side including some dysphagia. He did some therapy for 3 days and then quit, saying it was not helping him. No history of seizures. In questioning any psychiatric history, the 2 sisters recall that he was actually hospitalized in the psychiatric unit at [facility] about 10 years ago. They do not recall the diagnoses, but he was on some medication at that time. Sisters report that he just "lost it." They cannot give me any further details at all and whether or not it is similar to what is going on currently. I believe they were not around the patient at this time. The cannot give me details of this because she has not known the patient for that amount of time. Family reports that he has requested a gun and has also made several comments that he will not be here in June. PAST MEDICAL HISTORY: 1. Apparent stroke involving right-sided numbness and dysphagia last year. 2. Diabetes. He stopped taking his medications shortly after his stroke when he ran out. 3. Possible hypertension. 4. Psychiatric unit hospitalization about 10 years ago [facility] for unknown reason or diagnoses. FAMILY HISTORY: His father committed suicide by shooting himself. His mother had stroke. His sister had a TIA. No seizures. SOCIAL HISTORY: The family denies alcohol, tobacco or illicits. He is and lives with his . 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 ALLERGIES: No known drug allergies. MEDICATIONS: He was not taking any medications at home. Current medications reviewed in the chart. REVIEW OF SYSTEMS: The patient endorsed abdominal pain but denied everything else. Balance of 12 was conducted and is negative except for that detailed in the HPI. PHYSICAL EXAMINATION: Vital signs: He has been afebrile during his stay. Blood pressure 107/75 on admission and currently 152/80. Pulse 80s to low 100s, respirations 16, saturation 94% on room air. Mr. Dumont is supine in bed, quite agitated, trying to get out of bed. He grabbed my wrist repeatedly forcibly, pulling me towards him. He is talking nonstop, interrupting my conversation with family, yelling out. Eventually he calms enough and cooperates briefly with answering orientation questions. He is oriented to self, family, location, [place], city, president. He said May but was able to correct that. He did not know the date or the day of the week. He did know the president. He does know that he was transferred from [place] to here. He follows simple and complex commands. Pupils appear equal. He did not participate well with reactivity. Gaze is conjugate and forward. He has full lateral eye movements. Face is symmetric with equal activation. He is quite strong, actively using all of his limbs purposefully and without obvious deficit. He stands and does seem to be a bit unsteady on his feet, leaning against the IV pole and did seem to need limited assistance to get to the bathroom. He then sat down to rest. He is not cooperative enough for me to test him further at this time. No meningismus. DIAGNOSTIC DATA: MRI of the brain with and without contrast performed yesterday was personally reviewed. No acute findings. No abnormal contrast enhancement. Head CT noncontrast performed 05/31/2018 showed no acute findings. Chest CT showed suspected cholecystitis, nonspecific bilateral infiltrates, and esophagitis was also suggested. White count was 26 on admission, currently normalized. Normal sodium, BUN and creatinine. Blood sugars have been elevated at upper 100s to mid 300s. AST and ALT normal. Ammonia normal. CRP elevated at 103. B12 is 1450. Folate 8.6. TSH is 1. Free T4 is 1.1. Toxicology negative x2. Serum ethyl alcohol is zero. Microbiology with no growth for blood and for urine. ASSESSMENT AND PLAN: Hyperactive state and agitation of uncertain etiology. Negative cranial imaging and afebrile state are reassuring. This may partly be on the basis of the significant pain stimulus that he has been under, and plan is for cholecystectomy today. Let's see how he does after the surgery. He does have what sounds to be a psychiatric history, which we may have to consider as part of the current presentation, and he has also expressed suicidal thoughts or intentions in the last 2 weeks. I have requested psychiatric records from [facility], though I am not confident we will be able to get those. Other etiologies are not excluded. Family denies drug and alcohol history, and his toxicology screens were negative on admission, though this is still a consideration. For now, I would continue managing him symptomatically with as needed medications as well as frequent redirecting. Thank you for the consultation. cc: MD WARREN Mike
[2018-06-04] MEDS: STERILE WATER INJ. INJ PRN (03:44)
[2018-06-04] MEDS: GEODON IM PRN (03:45)
[2018-06-04] MEDS: NS + KCL 40 MEQ 1,000 ML IV SCH (05:12)
[2018-06-04] MEDS: ZOSYN 3.375 GM in NS 50 ML IV SCH ×4 (05:12→22:25)
[2018-06-04 06:31] LABS: BASO# 0.02 X1000 (0.0-0.2); BASO% 0.2 % (0.0-0.8); HEMATOCRIT 31.5 % (42.0-52.0); HEMOGLOBIN 9.7 g/dL (14.0-18.0); IMM GRAN# 0.03 X1000 (0.0-0.04); IMM GRAN% 0.3 % (0.0-0.5); LYMPH# 1.75 X1000 (1.2-3.4); LYMPH% 17.1 % (20.5-51.1); MCH 24.4 PG (27-31); MCHC 30.8 g/dL (33-37); MCV 79.3 FL (81-99); MONO# 0.64 X1000 (0.11-0.59); MONO% 6.2 % (1.7-9.3); MPV 9.6 FL (7.4-10.4); NEUT# 7.82 X1000 (1.4-6.5); NEUT% 76.2 % (42.2-75.2); PLT 482 X1000 (130-400); RBC 3.97 XMIL (4.7-6.1); RDW 15.3 % (11.5-14.5); WBC 10.26 X1000 (4.8-10.8)
[2018-06-04 07:16] LABS: AGAP 11; ALBUMIN 2.8 g/dL (3.5-5.0); ALKALINE PHOSPHATASE 100 U/L (32-122); BUN 6 mg/dL (8-22); CALCIUM 7.8 mg/dL (8.8-10.2); CHLORIDE 109 mmol/L (98-107); COSMO 298; CREATININE 0.8 mg/dL (0.7-1.2); ESTIMATED GFR > 60; GLUCOSE 216 mg/dL (70-104); GOT 32 U/L (10-34); GPT 18 U/L (10-44); POTASSIUM 4.6 mmol/L (3.5-5.1); SODIUM 148 mmol/L (136-145); TCO2 28 mmol/L (25-35); TOTAL PROTEIN 5.6 g/dL (6.3-8.3)
--- NOTE | 2018-06-04 10:14 | PROGRESS NOTE ---
DATE: 06/04/2018 SUBJECTIVE: The patient is very sleepy this morning, does not talk to me. , who is at bedside, reports that he has been awake most part of the night. OBJECTIVE: Vital Signs: Temperature 97.6 degrees, heart rate 83, respiratory rate 16, blood pressure 152/80, O2 saturation 98% on 2 L nasal cannula. General Examination: This is a 63-year- old, male, lying in bed, in no acute distress. HEENT: Head is normocephalic and atraumatic. Neck: No JVD noted. No carotid bruits. No lymphadenopathy. No thyromegaly. Cardiovascular Examination: S1 and S2 heard. No murmurs, gallops, or rubs. Regular rate and rhythm. Respiratory Examination: Clear bilaterally to auscultation. No work of breathing or using accessory muscles. Abdomen: Soft. Mildly tender to palpation around the right upper quadrant. The patient had bowel sounds present. No organomegaly. Extremities: No clubbing, cyanosis, or edema. Peripheral pulses present in both legs. Neurological Examination: The patient is sleepy and apparently he does not want to talk to me. Patient moves 4 extremities spontaneously. Laboratory Data: White cell count 10.26, hemoglobin 9.7, hematocrit 31.5, platelets 482,000. Sodium 148. Hemoglobin A1c 12.1. ASSESSMENT AND PLAN: 1. Acute cholecystitis, status post laparoscopic cholecystectomy. Patient underwent that procedure yesterday as per Dr. Marshall. At this time, his white cell count is back to normal. The patient is on Zosyn, not spiking any fever. We will continue with the same management. 2. Hypokalemia, resolved. 3. Uncontrolled diabetes mellitus type 2. The patient's hemoglobin A1c is 12.1, which is pretty much elevated. At this point, we are going to start sliding scale insulin and also Accu-Cheks before meals and also at bedtime. 4. History of stroke/behavioral changes. We have consulted neurology because the patient has been agitated and not being himself, according to the , for the last couple of weeks. Before that, he was completely normal with normal behavior. Apparently, as per neurology's note, the patient may have a psychiatric history. MRI of the brain is normal. That did not even show an old stroke. In any case, we will continue to monitor this patient closely. I think and we hope that with this cholecystitis taken care of, he will improve. We will continue to monitor him. cc: Jorge Rangel MD
--- NOTE | 2018-06-04 10:55 | PROGRESS NOTE ---
DATE: 06/04/2018 Dr. Espinosa saw Mr. Dumont for initial neurology consultation yesterday. He had agitated confusion. By report, there had been changes in behavior and possibly mentation over several days or longer. There is reported to be a past history of psychiatric problems. Workup here includes brain MRI done with and without contrast on 06/02/2018 showing nothing remarkable. There was reported to be previous stroke history but Mr. Dumont cannot provide details of that history today and MRI did not show definite old ischemic lesion. Blood sugars have ranged 200s to 300s. WBC count was 26,000 initially but down to 10,000 later. He has been afebrile. Systolic blood pressures have ranged 110s to 170s. This morning, he appeared to be sleeping peacefully. With gentle stimulation, he was quickly alert and attentive. He is oriented to "[place], [place]" and he named the President correctly. He did not discuss recent news when asked. He had some calm and appropriate conversation with me. He was very slightly tremulous but there was no classifiable tremor. Limb tone is symmetric. He used his arms and legs well. Speech is not significantly dysarthric. He took a sip of water from his bedside water jug through the straw and seemed briefly strangled. IMPRESSION: Possible global encephalopathy may be resolving. If there is an underlying psychiatric component, there may be a need for further evaluation of that problem. I do not have any urgent suggestion from a neurologic standpoint today with his nonfocal exam , improved mental state, normal level of consciousness, negative MRI. Thanks for asking neurology to see Mr. Dumont. cc: MD WARREN Vasquez III
[2018-06-04] MEDS: PERIDEX MT SCH ×2 (11:13→21:00)
[2018-06-04] MEDS: SODIUM CHLORIDE 0.9% INJ SCH ×2 (11:14→20:50)
[2018-06-04] MEDS: PROTONIX IV SCH ×2 (11:14→20:51)
[2018-06-04] MEDS: 1/2 NS + KCL 20 MEQ 1,000 ML IV SCH ×2 (11:20→16:09)
[2018-06-04] MEDS: HUMALOG SUBQ SCH ×3 (11:25→21:00)
[2018-06-04] MEDS: ATIVAN IV PRN (13:32)
--- NOTE | 2018-06-04 14:13 | GENERAL SURGERY PROGRESS NOTE ---
DATE: 06/04/2018 SUBJECTIVE: The patient is doing okay today. He still complains of some epigastric pain. No nausea or vomiting. He has actually eaten a moderate amount of food today. OBJECTIVE: Vital Signs: He is afebrile. Vital signs are stable. General: He is awake and alert. He is fairly oriented but seems still mildly confused. Laboratory: White blood cell count 10, hemoglobin 9.7, hematocrit 31. Sodium 148, potassium 4.6, chloride 109, BUN 6, creatinine 0.8. ASSESSMENT/PLAN: A 63-year-old male, postoperative day 1 laparoscopic cholecystectomy for acute cholecystitis. He also has a global encephalopathy and unsteady gait. Speech therapy evaluated him for a dysphagia and he was cleared for a diabetic diet utilizing a left head turn and strict aspiration precautions. We will consult physical therapy for assistance with his gait and strength. He likely has some underlying psychiatric problems that are of yet to be specified. I think further evaluation with psychiatry is in his near future. From a surgical standpoint, he is nearing a point of discharge, pending physical therapy evaluation and treatment. cc: Domingo Marshall MD
[2018-06-04] MEDS ORDERED: LABETALOL IV ONE (22:03)
[2018-06-04] MEDS ORDERED: APRESOLINE IV PRN (22:04)
[2018-06-04] MEDS: GEODON IM SCH (22:38)
[2018-06-05] MEDS: ATIVAN IV PRN ×2 (00:36→10:24)
[2018-06-05] MEDS: ZOSYN 3.375 GM in NS 50 ML IV SCH ×3 (06:53→19:05)
[2018-06-05] MEDS: HUMALOG SUBQ SCH ×2 (06:53→16:44)
[2018-06-05 07:06] LABS: BASO# 0.03 X1000 (0.0-0.2); BASO% 0.3 % (0.0-0.8); EOS# 0.17 X1000 (0.0-0.7); EOS% 1.7 % (0.0-10.0); HEMATOCRIT 33.2 % (42.0-52.0); HEMOGLOBIN 10.2 g/dL (14.0-18.0); IMM GRAN# 0.02 X1000 (0.0-0.04); IMM GRAN% 0.2 % (0.0-0.5); LYMPH# 2.24 X1000 (1.2-3.4); MCH 24.3 PG (27-31); MCHC 30.7 g/dL (33-37); MONO% 5.9 % (1.7-9.3); MPV 9.2 FL (7.4-10.4); NEUT# 7.11 X1000 (1.4-6.5); NEUT% 69.9 % (42.2-75.2); PLT 503 X1000 (130-400); RDW 15.7 % (11.5-14.5); WBC 10.17 X1000 (4.8-10.8)
[2018-06-05 07:48] LABS: AGAP 12; ALB/GLOB RATIO 0.9; ALKALINE PHOSPHATASE 97 U/L (32-122); BUN 4 mg/dL (8-22); CALCIUM 7.5 mg/dL (8.8-10.2); CHLORIDE 106 mmol/L (98-107); COSMO 284; CREATININE 0.8 mg/dL (0.7-1.2); ESTIMATED GFR > 60; GLUCOSE 112 mg/dL (70-104); GOT 28 U/L (10-34); GPT 17 U/L (10-44); POTASSIUM 3.7 mmol/L (3.5-5.1); SODIUM 144 mmol/L (136-145); TCO2 26 mmol/L (25-35); TOTAL BILIRUBIN 0.25 mg/dL (0.20-1.00); TOTAL PROTEIN 6.4 g/dL (6.3-8.3)
[2018-06-05] MEDS: PROTONIX IV SCH (08:24)
[2018-06-05] MEDS: SODIUM CHLORIDE 0.9% INJ SCH (08:24)
[2018-06-05] MEDS: PERIDEX MT SCH (08:24)
--- NOTE | 2018-06-05 12:09 | PROGRESS NOTE ---
DATE: 06/05/2018 Mr. Dumont is sitting up, having lunch. and daughter are at the bedside. He had some appropriate conversation with me. Most of the time, however, he interrupted conversation, spoke loudly, and was generally inappropriate with some of his comments. Speech is not significantly dysarthric. Language function is intact. I do not find a focal neurologic problem on limited testing today. I observed him having some problems swallowing with apparent aspiration. According to family, he had stroke several months or a year ago, causing change in gait and difficulty swallowing. According to family, his current level of swallowing difficulty is at baseline, same now as several months ago. His current post swallowing wheezing and coughing are exactly the same now as several months ago, according to family. His change in behavior occurred a few weeks ago and, according to family, is about the same now as it has been over these few weeks. Current did not know him 10 years ago when he had some sort of psychiatric evaluation. Daughter at the bedside reports she was not in touch with him much then and does not recall details of that problem. She reports there is a niece of the patient, who did spend a good bit of time with him then, and she will check with that niece to see if his current behavior resembles his behavior during that prior episode. He was not taking antipsychotic medicines or other psychiatry medicines chronically. I do not have any urgent suggestion from neurologic standpoint. We need to be very careful with swallowing. When medically cleared, I think Psychiatry evaluation is warranted. Thanks for asking Neurology to see Mr. Dumont. cc: MD JUAN C Vasquez IIID
--- NOTE | 2018-06-05 13:30 | Diag Imaging Result Doc PS360 ---
EXAM: CHEST-1 VIEW HISTORY: Tip of IV Cath missing TECHNIQUE: Portable chest single view COMPARISON: 05/31/2018 FINDINGS: Poor inspiratory effort. No cardiomegaly. Infiltrates or atelectasis in the lower lungs. There is a small left pleural effusion. No foreign body identified. IMPRESSION: Basilar infiltrates and atelectasis with small pleural effusions Electronically signed by Chad Dickey 06/05/2018 1:28 PM
--- NOTE | 2018-06-05 13:34 | Diag Imaging Result Doc PS360 ---
EXAM: HUMERUS-RIGHT HISTORY: tip of iv catheter missing TECHNIQUE: Right humerus, two views COMPARISON: None. FINDINGS: No fracture. No dislocation. No foreign body identified. Benign appearing thickening to the midshaft of the humerus. IMPRESSION: Negative exam. Electronically signed by Chad Dickey 06/05/2018 1:32 PM
[2018-06-05] MEDS ORDERED: HALDOL IM PRN (15:37)
--- NOTE | 2018-06-05 17:34 | GENERAL SURGERY PROGRESS NOTE ---
DATE: 06/05/2018 SUBJECTIVE: The patient says he is feeling fine or at least feeling better; however, he is still somewhat unsteady on his feet per staff reports, although the patient denies this. There have been reports of inappropriate comments made to his and staff that are somewhat threatening. OBJECTIVE: He is afebrile. Vital signs are stable. Generally he is awake and alert. He is oriented x3; however, he does laugh inappropriately at times. He got up out of bed and tried to walk against my advice, and nearly fell into the wall, knocking over his lunch tray. We set him back in the bed safely. GI: Soft and nondistended. Incision is clean, dry and intact. LABORATORY DATA: Reviewed and unremarkable. ASSESSMENT AND PLAN: A 63-year-old male status post laparoscopic cholecystectomy. He appears to be healing appropriately from this; however, there are apparent psychiatric problems that are surfacing at this time. He does have a history of a psychiatric diagnosis. He also is unstable walking. I have talked this over with Dr. Bryson. I think he needs inpatient psychiatric evaluation, continued physical therapy and rehab, and close monitoring. cc: Domingo Marshall MD
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
[2018-06-05] MEDS: 1/2 NS + KCL 20 MEQ 1,000 ML IV SCH (19:06)
[2018-06-05] MEDS: HYGROTON PO SCH (19:35)
[2018-06-06] MEDS: PERIDEX MT SCH ×3 (00:31→21:10)
[2018-06-06] MEDS: GEODON IM SCH ×2 (00:31→21:10)
[2018-06-06] MEDS: SEROQUEL PO SCH ×2 (00:31→21:10)
[2018-06-06] MEDS: STERILE WATER INJ. INJ PRN (00:31)
[2018-06-06] MEDS: 1/2 NS + KCL 20 MEQ 1,000 ML IV SCH (06:00)
[2018-06-06] MEDS: HUMALOG SUBQ SCH ×5 (06:00→21:10)
[2018-06-06] MEDS: ZOSYN 3.375 GM in NS 50 ML IV SCH ×4 (06:00→17:43)
[2018-06-06] MEDS: PRILOSEC PO SCH (06:23)
--- NOTE | 2018-06-06 07:36 | EKG Report ---
Test Performed on : 06/06/2018 06:50:50 AM Test Reason : Follow up QTc Blood Pressure : / mmHG Vent. Rate : 088 BPM Atrial Rate : 088 BPM P-R Int : 130 ms QRS Dur : 090 ms QT Int : 386 ms P-R-T Axes : 054 014 039 degrees QTc Int : 467 ms Sinus rhythm. with occasional premature ventricular complexes. Otherwise normal ECG When compared with ECG of 31-MAY-2018 18:03, (Unconfirmed) premature ventricular complexes. are now present Unconfirmed Result
[2018-06-06] MEDS ORDERED: FERROUS SULFATE PO SCH (09:00)
[2018-06-06] MEDS: HYGROTON PO SCH (09:54)
--- NOTE | 2018-06-06 10:56 | PROGRESS NOTE ---
DATE: 06/06/2018 SUBJECTIVE: Mr. Dumont is sitting up on the side of his bed, feeding himself. He reports previous stroke approximately a year ago. Review of computer record shows admission then with prominent dysphagia. Workup included MRI showing evidence of acute left medullary infarction. MRI this admission does not confirm the presence of infarction there, but lower medulla is not well seen on current scan. OBJECTIVE: He seems bright and a little bit more attentive and more consistent and appropriate today. His speech remains slightly dysarthric. He continues to have significant dysphagia. He reports poor pinprick and light touch appreciation across the right side of his body including the face, arm and leg. Proprioception is good on the right. IMPRESSION: 1. 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 I do not see evidence of a new neurologic deficit or new ischemic event. 2. I believe that he does have a baseline psychiatry issue which has been quiet in recent years but flared up recently. I do not have record from reported prior [facility] admission for management of psychiatric problem. Also, do not have information from family (niece) regarding his appearance then. I agree with plans for [facility] consultation. 3. I encouraged him to be careful with his feeding, to take small bites, to turn his head to the left as has been previously recommended. Thanks for asking neurology to see Mr. Dumont. cc: MD WARREN Vasquez III
--- NOTE | 2018-06-06 16:06 | PROGRESS NOTE ---
DATE: 06/06/2018 Interval history. No acute overnight events. [facility] has not been calling yet and I reminded the care team about our consulting [facility] about this patient. The patient's is at bedside. Also talked with the patient's niece on phone. Apparently he did have an episode of sudden onset alteration in his behavior about several years ago for which he had required inpatient psychiatry unit admission for about 5 to 6 days. However the niece does not remember any known diagnosis or he was taking any psychiatric medication on long-term basis. Currently patient was sleeping, denies any complaints. feels that he is much better today than he has been over last few days. OBJECTIVE: Vital signs: Suggest temperature of 98.2 degrees, pulse 96, respiratory rate 16, blood pressure 128/66, saturating 96% on room air. General: He does not appear in any acute distress. Oral cavity is moist. No pharyngeal congestion. Air entry bilateral equal without wheeze, rhonchi, crackles. Cardiovascular: S1, S2 normal. No murmur or gallop. Abdomen: Soft, nontender. No lower extremity edema. On my yesterday's neurological examination he had decreased sensation to crude and pinpoint touch in right upper extremity and right lower extremity. He also has baseline dysphagia. LABS: No CBC or BMP today. ASSESSMENT AND PLAN: 1. Acute cholecystitis status post laparoscopic cholecystectomy on June 03 with uncomplicated postop course. Continue diabetic diet as per DELIVERY CONSULTANT recommendations. 2. Acute encephalopathy with previous history of left side medullary stroke with residual dysphagia and right upper and lower extremity decreased sensation to decrease sensation to crude touch and pinprick, previous inpatient psychiatry admission for about 5 to 6 days for unclear psychiatric illness. His current acute encephalopathy could be related to an acute psychosis or deepti. I will continue him on nighttime Seroquel and p.r.n. haloperidol. If he interferes and is not able to maintain safety precautions [facility] consult has been placed. I am awaiting their recommendation if he would need inpatient psychiatric admissions. 3. Essential hypertension. Continue chlorthalidone and increase the dose as tolerated, I will add aspirin for primary CVA prophylaxis, continue iron for iron deficiency microcytic anemia. 4. Disposition patient is awaiting [facility] consult. If [facility] does not accept him plan is to discharge him home tomorrow and have outpatient psychiatric evaluation. Plan of care discussed with patient's at bedside the surrogate decision maker. All of her questions have been answered. cc: Salinas Bryson MD MTDD
--- NOTE | 2018-06-06 20:22 | GENERAL SURGERY PROGRESS NOTE ---
DATE: 06/06/2018 SUBJECTIVE: The patient is doing okay. He denies abdominal pain, nausea, or vomiting. He is eating. OBJECTIVE: He is afebrile. Vital signs are stable. General: He is awake and alert. He still has some apparent confusion and laughs inappropriately at times. He is not agitated at this time. Gastrointestinal: Soft, nondistended, nontender. Incision is clean, dry, and intact. ASSESSMENT AND PLAN: A 63-year-old male status post laparoscopic cholecystectomy. He is recovering well from that standpoint but continues to display some baseline psychiatric abnormality, and I agree with evaluation by [facility]. cc: Domingo Marshall MD
[2018-06-07] MEDS ORDERED: ASPIRIN ONE (05:45)
[2018-06-07 06:11] LABS: BASO# 0.02 X1000 (0.0-0.2); BASO% 0.2 % (0.0-0.8); EOS# 0.25 X1000 (0.0-0.7); HEMATOCRIT 31.3 % (42.0-52.0); HEMOGLOBIN 9.9 g/dL (14.0-18.0); IMM GRAN# 0.02 X1000 (0.0-0.04); IMM GRAN% 0.2 % (0.0-0.5); LYMPH# 2.02 X1000 (1.2-3.4); MCH 24.3 PG (27-31); MCHC 31.6 g/dL (33-37); MCV 76.9 FL (81-99); MONO# 0.53 X1000 (0.11-0.59); MONO% 6.3 % (1.7-9.3); MPV 9.3 FL (7.4-10.4); NEUT# 5.58 X1000 (1.4-6.5); NEUT% 66.3 % (42.2-75.2); PLT 452 X1000 (130-400); RBC 4.07 XMIL (4.7-6.1); RDW 15.2 % (11.5-14.5); WBC 8.42 X1000 (4.8-10.8)
[2018-06-07 06:24] LABS: CHOLESTEROL 147 mg/dL (0-200); HDL 53 mg/dL (35-55); LDL 66 mg/dL; TRIGLYCERIDES 142 mg/dL (39-160); VLDL 28 mg/dL
[2018-06-07 06:30] LABS: AGAP 14; BUN 4 mg/dL (8-22); CHLORIDE 99 mmol/L (98-107); COSMO 274; CREATININE 0.8 mg/dL (0.7-1.2); ESTIMATED GFR > 60; GLUCOSE 130 mg/dL (70-104); MAGNESIUM 1.7 mg/dL (1.5-2.7); SODIUM 138 mmol/L (136-145); TCO2 25 mmol/L (25-35)
[2018-06-07] MEDS: HUMALOG SUBQ SCH (06:41)
[2018-06-07] MEDS: PRILOSEC PO SCH (06:42)
[2018-06-07 08:30] VITALS: BP 147/105
[2018-06-07] MEDS ORDERED: ASPIRIN PO SCH (09:00)
[2018-06-07] MEDS ORDERED: KLOR-CON PO ONE (11:06)
[2018-06-07] MEDS ORDERED: LIPITOR PO SCH (21:00)
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
== END 2018-06-07 10:00 | disposition left against medical advice (07) | DRG 876 ==
LOC: P.ED 13:33 → P.MEDSURG 19:55 → SUATTDRO 19:55 → 4N 06-02 15:21 → DIRADM 06-03 17:31
PROVIDERS: ATTEND Internal Medicine
CPT/HCPCS: 70450; 70553; 71010; 71020; 71045; 71046; 71260; 73060; 74300; 76700; 80048; 80053; 80061; 80076; 80104; 80301; 80305; 80307; 80320; 81001; 82055; 82140; 82550; 82553; 82607; 82746; 82948; 83036; 83540; 83550; 83605; 83735; 84439; 84443; 84484; 85025; 85651; 86140; 87040; 87088; 88304; 92610; 93005; 93010; 94761; 96361; 96374; 96375; 97116; 97162; 97530; 99285; A9270; A9579; C1751; C9113; G0431; G0434; G0477; G0480; G6040; J0330; J0696; J1100; J1815; J2060; J2270; J2310; J2405; J2543; J3010; J3370; J3480; J3486; J7030; J7120; Q9966; Q9967; S0164; XXXXX

== ENCOUNTER 2019-02-21 17:35 | Inpatient (IN) ==
[2019-02-21] MEDS ORDERED: NS 1,000 ML IV PRN (18:20)
[2019-02-21 18:22] LABS: BASO# 0.07 X1000 (0.0-0.2); BASO% 0.6 % (0.0-0.8); EOS# 0.48 X1000 (0.0-0.7); EOS% 4.3 % (0.0-10.0); HEMATOCRIT 34.1 % (42.0-52.0); HEMOGLOBIN 10.8 g/dL (14.0-18.0); IMM GRAN# 0.02 X1000 (0.0-0.04); IMM GRAN% 0.2 % (0.0-0.5); LYMPH# 3.24 X1000 (1.2-3.4); LYMPH% 28.8 % (20.5-51.1); MCH 25.2 PG (27-31); MCHC 31.7 g/dL (33-37); MCV 79.5 FL (81-99); MONO% 6.2 % (1.7-9.3); MPV 9.5 FL (7.4-10.4); NEUT# 6.74 X1000 (1.4-6.5); NEUT% 59.9 % (42.2-75.2); PLT 287 X1000 (130-400); RBC 4.29 XMIL (4.7-6.1); RDW 14.9 % (11.5-14.5); WBC 11.25 X1000 (4.8-10.8)
[2019-02-21 18:40] LABS: INR 0.84; PROTIME 11.9 Seconds (11.0-16.0)
--- NOTE | 2019-02-21 18:40 | PROVIDER DOCUMENTATION ---
This chart was entered by Jordan Goodman Scribe, acting as scribe for Jac Little MD. HPI-Neurological Disorder <ArchieLiberty SalazarShantell - Last Filed: 02/21/19 20:31> - General Source: patient, family, EMS - History of Present Illness-Neuro Severity: reports: mild Onset/Duration: reports: last night Timing: reports: still present, improving Context: reports: found unresponsive by family, impaired speech, falling, other Character of Altered Mental Status: reports: disoriented, other Any recent trauma/injury?: reports: none Character of Deficits: reports: new weakness, vision problem/glaucoma, impaired speech, falling New weakness or altered sensation location:: reports: general (diffuse) Cognitive Baseline: alert but disoriented Gait Baseline: walks without assistance Associated Symptoms: reports: decreased ability to walk or stand, dizziness, loss of consciousness, slurred speech, trouble walking, vision changes, weakness , other Similar Symptoms Previously?: No Recently seen or treated by another doctor?: No <Jac Little - Last Filed: 02/21/19 20:57> - General Chief Complaint: General Adult Stated Complaint: stroke/seizure Time Seen by Provider: 02/21/19 18:12 Allergies/Adverse Reactions: Patient Allergies Allergy/AdvReac Type Severity Reaction Status Date / Time No Known Allergies Allergy Verified 10/11/18 12:02 Home Medications: Home Medication List Medication Instructions Recorded Confirmed Last Taken Type NK [No Home Medications] 05/31/18 02/21/19 Unknown History - History of Present Illness-Neuro Nature of Presenting Problem: Pt is a 63 yom who presents to the ED via EMS with family with a CC of neurological disorder. Pt reports his symptoms began at approximately 2200 last night. Pt reports attempting to go to the restroom last night and states he was unable to walk or stand. Pt also complains of dizziness, decreased vision, difficulty swallowing, difficulty speaking, a 'jerking' sensation, and a tightne ss in his right leg. Pt's niece reports the pt had a syncopal episode prior to arrival to the ED. Pt reports his speech and vision has improved upon arrival to the ED. Upon examination the pt had mild upper and lower right extremity weakness. (Jac Little) Review of Systems - Adult - REVIEW OF SYSTEMS - ADULT Constitutional: reports: see HPI Eyes: reports: see HPI, decreased vision, blurred vision Ears, Nose, Mouth & Throat: reports: no symptoms reported Cardiovascular: reports: no symptoms reported Respiratory: reports: no symptoms reported Gastrointestinal: reports: no symptoms reported Genitourinary: reports: no symptoms reported Musculoskeletal: reports: see HPI, muscle weakness, other Neurological: reports: see HPI, ataxia, dizziness/vertigo, slurred speech, tremors Psychiatric: reports: no symptoms reported Endocrine: reports: no symptoms reported Hematologic/Lymphatic: reports: no symptoms reported Allergic/Immunologic: reports: no symptoms reported All Other Systems: Reviewed and Negative <Jac Little - Last Filed: 02/21/19 20:57> Past History - Adult - PAST MEDICAL HISTORY-ADULT Review of Records: reports: Old Records Reviewed, Nursing Assessment Review, Medications Reviewed, Social history reviewed & non-contributory. Major Childhood Illnesses: reports: denies history Cardiovascular: reports: HTN Respiratory: reports: denies history Gastrointestinal: reports: denies history Obstetrical/Gynecological: reports: denies history Genitourinary: reports: denies history Musculoskeletal: reports: denies history Neurological: reports: CVA Psychiatric: reports: psychiatric problems Endocrine/Immune: reports: Diabetes Other Conditions: reports: denies history - PRIOR SURGERIES/PROCEDURES Surgical/Procedure History: reports: none - IMMUNIZATION STATUS Childhood Immunizations: See Nurse Assessment Flu Vaccine: See Nurse Assessment - FAMILY HISTORY Family History: CVA/TIA (pt family reports pt has prior stroke) - SOCIAL HISTORY Smoking: denies, non-smoker Substance Use: none/never, denies Alcohol Use Frequency: never <Jac Little - Last Filed: 02/21/19 20:57> Physical Exam- Neurological - Physical Exam-Neuro Initial Vital Signs Reviewed: Yes General Appearance: alert, mild distress Eye Exam: bilateral eye: normal inspection, PERRL HENMT: normocephalic/atraumatic, moist mucous membranes Head Injury: no evidence of injury Neck: non-tender, full range of motion Respiratory: chest non-tender, lungs clear, normal breath sounds Cardiovascular: normal peripheral pulses, regular rate, rhythm Abdominal Exam: non tender, soft Extremity: tenderness glass furnace tender Exam: normal hearing, PERRL Motor/Sensory: weak motor strength RUE, weak motor strength RLE Neurologic: motor weakness (Right sided) Integumentary: normal color, warm/dry <Jac Little - Last Filed: 02/21/19 20:57> Progress - PLAN OF CARE/RESULTS Result Diagrams: 02/21/19 18:15 02/21/19 18:15 - REASSESSMENT Reassessment #1 Time Reassessed: 20:00 Status: unchanged (labs suggestive of UTI. will start CTX, CT head negative, will admit for TIA w/u. aspirin administered.) - CONSULTS/PCP/HOSPITALIST Notification #1 *Consult/PCP/Hospitalist*: d/w DR CATALAN Time Discussed: 20:22 Consult Disposition: Admit <Liberyt Almanza - Last Filed: 02/21/19 20:31> - PLAN OF CARE/RESULTS Result Diagrams: 02/21/19 18:15 02/21/19 18:15 - EKG 1 Time of EKG reading by physician:: 19:27 EKG Read and Signed by:: Liberty Almanza EKG Interpretation (*Must complete 3 of following elements*): Normal (No STEMI) Rate: 93 Rhythm: NSR [place]: normal QRS: normal DC Interval: normal ST Wave: normal - XRAY 1 XRAY: Bilateral XRAY Study: Chest Impression: See EMR Report (EXAM: CHEST-PORTABLE INDICATION: stroke like symptoms TECHNIQUE: One view COMPARISON: 10/11/2018 FINDINGS: There is stable mild elevation of the right hemidiaphragm. The lungs are grossly clear. There is no discrete pleural fluid collection or pneumothorax. The cardiomediastinal silhouette and central vasculature are grossly unremarkable. IMPRESSION: No evidence of acute pathology by plain radiograph. Electronically signed by Trey Maier 02/21/2019 7:34 PM 02/21/191933 Interpreting Physician: Trey Maier MD Dictated Date/Time: 02/21/191932 cc: Jac Ltitle MD; None,PCP) - CT/MRI 1 CT Study: Head Impression: See EMR Report (EXAM: CT HEAD W/O CONTRAST INDICATION: stroke like symptoms TECHNIQUE: This exam was performed using automated exposure control, adjustment of mA or kV according to patient size, and/or use of iterative reconstruction technique. COMPARISON: 10/11/2018 FINDINGS: There is no definite acute infarct given the limited sensitivity of CT versus MRI. There is no discrete intracranial mass, mass effect, or intracranial hemorrhage. The surrounding soft tissues and bony structures are essentially unremarkable. IMPRESSION: No evidence of acute intracranial pathology. Electronically signed by Trey Maier 02/21/2019 7:43 PM 02/21/191942 Interpreting Physician: Trey Maier MD Dictated Date/Time: 02/21/191939 cc: Jac Rich MD; None,PCP) - CHANGE OF SHIFT REPORT (ED Provider) 1 Report Given and Care Transferred to:: Dr Almanza Time of Transfer: 19:00 Items Pending: Labs, XRAY Results, CT/MRI Results <Jac Little - Last Filed: 02/21/19 20:57> - PLAN OF CARE/RESULTS Progress/Plan/Lab Results: Vital Signs - 8 hr 02/21/19 17:41 Temperature 97.7 F Pulse Rate 94 H Respiratory Rate 19 Blood Pressure 164/99 O2 Sat by Pulse Oximetry 100 Laboratory Results - last 24 hr 02/21/19 02/21/19 02/21/19 18:15 18:15 18:15 WBC 11.25 H RBC 4.29 L Hgb 10.8 L Hct 34.1 L MCV 79.5 L MCH 25.2 L MCHC 31.7 L RDW Std Deviation 14.9 H Plt Count 287 MPV 9.5 Immature Gran % (Auto) 0.2 Neut % (Auto) 59.9 Lymph % (Auto) 28.8 [place] % (Auto) 6.2 Eos % (Auto) 4.3 Baso % (Auto) 0.6 Immature Gran # (Auto) 0.02 Neut # (Auto) 6.74 H Lymph # (Auto) 3.24 [place] # (Auto) 0.70 H Eos # (Auto) 0.48 Baso # (Auto) 0.07 PT 11.9 INR 0.84 PTT (Actin FS) 30.7 Sodium 142 Potassium 4.0 Chloride 103 Carbon Dioxide 28 Anion Gap 11 BUN 16 Creatinine 0.8 Estimated GFR/1.73 m2 > 60 BUN/Creatinine Ratio 20 Glucose 164 H POC Glucose Calculated Osmolality 288 Calcium 9.6 Total Bilirubin < 0.15 L AST 29 ALT 33 Alkaline Phosphatase 86 Troponin T Total Protein 6.8 Albumin 4.1 Globulin 3.0 Albumin/Globulin Ratio 2.0 Urine Source Urine Color Urine Turbidity Urine pH Ur Specific [place] Urine Protein Ur Glucose (Stick) Ur Ketones (Stick) Urine Blood Urine Nitrite Urine Bilirubin Urobilinogen Dipstick Urine Leukocytes Urine WBC (Auto) Urine RBC (Auto) U Epithel Cells (Auto) Urine Bacteria (Auto) Urine Crystals Small Round Cells Urine Casts Urine Yeast-like Cells Urine Opiates Screen Ur Oxycodone Screen Urine Methadone Screen U Propoxyphene Qual Ur Barbituates Screen Ur Tricyclics Screen Ur Phencyclidine Scrn Ur Amphetamines Screen U Methamphetamines Scrn U Benzodiazepines Scrn Urine Cocaine Screen U Cannabinoids Screen 02/21/19 02/21/19 02/21/19 18:15 18:45 18:45 WBC RBC Hgb Hct MCV MCH MCHC RDW Std Deviation Plt Count MPV Immature Gran % (Auto) Neut % (Auto) Lymph % (Auto) [place] % (Auto) Eos % (Auto) Baso % (Auto) Immature Gran # (Auto) Neut # (Auto) Lymph # (Auto) [place] # (Auto) Eos # (Auto) Baso # (Auto) PT INR PTT (Actin FS) Sodium Potassium Chloride Carbon Dioxide Anion Gap BUN Creatinine Estimated GFR/1.73 m2 BUN/Creatinine Ratio Glucose POC Glucose Calculated Osmolality Calcium Total Bilirubin AST ALT Alkaline Phosphatase Troponin T < 0.010 Total Protein Albumin Globulin Albumin/Globulin Ratio Urine Source CLEAN CATCH Urine Color YELLOW Urine Turbidity CLEAR Urine pH 6.0 Ur Specific [place] 1.019 Urine Protein TRACE A Ur Glucose (Stick) TRACE Ur Ketones (Stick) TRACE A Urine Blood NEGATIVE Urine Nitrite POSITIVE A Urine Bilirubin NEGATIVE Urobilinogen Dipstick NORMAL Urine Leukocytes MODERATE A Urine WBC (Auto) 10-20 A Urine RBC (Auto) Not Reportable U Epithel Cells (Auto) >10 A Urine Bacteria (Auto) 2+ Urine Crystals NONE SEEN Small Round Cells NONE SEEN Urine Casts NONE SEEN Urine Yeast-like Cells NONE SEEN Urine Opiates Screen NONE DETECTED Ur Oxycodone Screen NONE DETECTED Urine Methadone Screen NONE DETECTED U Propoxyphene Qual NONE DETECTED Ur Barbituates Screen NONE DETECTED Ur Tricyclics Screen NONE DETECTED Ur Phencyclidine Scrn NONE DETECTED Ur Amphetamines Screen NONE DETECTED U Methamphetamines Scrn NONE DETECTED U Benzodiazepines Scrn NONE DETECTED Urine Cocaine Screen NONE DETECTED U Cannabinoids Screen NONE DETECTED 02/21/19 18:46 WBC RBC Hgb Hct MCV MCH MCHC RDW Std Deviation Plt Count MPV Immature Gran % (Auto) Neut % (Auto) Lymph % (Auto) [place] % (Auto) Eos % (Auto) Baso % (Auto) Immature Gran # (Auto) Neut # (Auto) Lymph # (Auto) [place] # (Auto) Eos # (Auto) Baso # (Auto) PT INR PTT (Actin FS) Sodium Potassium Chloride Carbon Dioxide Anion Gap BUN Creatinine Estimated GFR/1.73 m2 BUN/Creatinine Ratio Glucose POC Glucose 149 H Calculated Osmolality Calcium Total Bilirubin AST ALT Alkaline Phosphatase Troponin T Total Protein Albumin Globulin Albumin/Globulin Ratio Urine Source Urine Color Urine Turbidity Urine pH Ur Specific [place] Urine Protein Ur Glucose (Stick) Ur Ketones (Stick) Urine Blood Urine Nitrite Urine Bilirubin Urobilinogen Dipstick Urine Leukocytes Urine WBC (Auto) Urine RBC (Auto) U Epithel Cells (Auto) Urine Bacteria (Auto) Urine Crystals Small Round Cells Urine Casts Urine Yeast-like Cells Urine Opiates Screen Ur Oxycodone Screen Urine Methadone Screen U Propoxyphene Qual Ur Barbituates Screen Ur Tricyclics Screen Ur Phencyclidine Scrn Ur Amphetamines Screen U Methamphetamines Scrn U Benzodiazepines Scrn Urine Cocaine Screen U Cannabinoids Screen Orders Category Date Time Status Admit - [facility] Routine AdmDCTranf 02/21/19 20:33 Active Activity - Bed Rest with BRP ORDERED Care 02/21/19 20:33 Active Cardiac Monitoring DIRECTED Care 02/21/19 18:20 Active Finger Stick Blood Sugar (ED) DIRECTED Care 02/21/19 18:20 Active Neurological Check Q4H Care 02/21/19 20:35 Active Oxygen Therapy- ED Nursing DIRECTED Care 02/21/19 18:20 Active Saline Loc NOW Care 02/21/19 18:20 Active Z-Document. for Tele Applied ORDERED Care 02/21/19 20:35 Active Heart Healthy Diet Diet 02/21/19 20:35 Active CHEST-PORTABLE [RAD] Stat Exams 02/21/19 18:[address] HEAD W/O CONTRAST [CT] Stat Exams 02/21/19 18:20 Completed CBC WITH ELECTRONIC DIFF [HEME] Stat Lab 02/21/19 18:15 Completed COMPREHENSIVE METABOLIC PANEL [CHEM] Stat Lab 02/21/19 18:15 Completed LIPID PROFILE W/DIR LDL [LIPIDS] Stat Lab 02/21/19 18:15 Received PROTIME WITH INR [COAG] Stat Lab 02/21/19 18:15 Completed PTT [COAG] Stat Lab 02/21/19 18:15 Completed TROPONIN T Stat Lab 02/21/19 18:15 Completed URINALYSIS W/POSS RFLX CULT [URINALYSIS] Stat Lab 02/21/19 18:45 Completed URINE CULTURE [RM] Routine Lab 02/21/19 19:20 Ordered URINE DRUG SCREEN PL Routine Lab 02/21/19 18:45 Completed URINE MANUAL MICROSCOPIC [URINALYSIS] Stat Lab 02/21/19 18:45 Completed 0.9% Sodium Chloride Inj [Ns] 1,000 ml Med 02/21/19 18:20 Active IV Wide Open mls/hr Aspirin Med 02/21/19 20:08 Discontinued 325 mg PO NOW ONE Calcium Carbonate Chew [Tums] Med 02/21/19 19:57 Discontinued 500 mg PO NOW ONE CefTRIAXONE [Rocephin] 1 gm Med 02/21/19 19:47 Discontinued 0.9% Sodium Chloride Inj [Ns] 50 ml IV NOW Generalized Adult Illness >60 Stat Oth 02/21/19 18:10 Ordered Telemetry [OM.EQ] Routine Oth 02/21/19 20:33 Active EKG [EKG] Stat Ther 02/21/19 18:20 Ordered Transfer/Admit Order [TRANSFER] Routine Transfer 02/21/19 20:36 Ordered Departure - Departure Date of Disposition Decision: 02/21/19 Time of Disposition Decision: 20:01 Certified Medical Emergency: Emergent - Critical Care Note This patient required my direct & personal management of CC.: No <Liberty Almanza - Last Filed: 02/21/19 20:31> - Departure Certified Medical Emergency: Emergent <Jac Little - Last Filed: 02/21/19 20:57> - Departure DIAGNOSIS: Leukocytosis, TIA (transient ischemic attack), UTI (urinary tract infection) Disposition: ADMITTED INPATIENT 09 Condition: Stable Additional Instructions: ED Follow Up Instructions: You have been treated by a care provider in the Emergency Department. These instructions are being provided to you so you can have an understanding of how to care for yourself upon discharge. Upon discharge from the Emergency Depart ment, you are responsible for making arrangements for follow-up care by a physician of your choice. Take all prescribed medications as directed. Return to the Emergency Department immediately for any new or worsening symptoms. You may call the Physician Referral phone number at [phone] to obtain a list of Physicians who are taking new patients. Referrals and Follow-Ups: None,PCP [Primary Care Provider] - Attestation - Physician/ ALEXIS Attestation Patient care was provided by Advanced Practice Provider:: No The physician spent face to face time with patient:: Yes Advanced Practice Provider documentation review:: Supervising physician onsite and consulted in the evaluation and care of this patient. The physician did have a face to face encounter with the patient. <Jac Little - Last Filed: 02/21/19 20:57> - NIH Stroke Scale Level of Consciousness: 0-Alert LOC Questions (ask month and age): 0-Answers Both Correctly LOC Commands (ask to open & close eyes;make a fist, let go): 0-Obeys Both Correctly Best Gaze (horizontal eye movement): 0-Normal Visual (use finger movement, counting or visual threat): 0-No Visual Loss Facial Palsy (show teeth or raise eyebrows & close eyes tght: 0-Symmetrical Movement Motor Function-left arm: 0-Normal Motor Function-right arm: 0-Normal Motor Function-left le-Normal Motor Function-right le-Normal Limb Ataxia(gjxjnm-[id number], or heel to tse): 0-No Ataxia Sensory(pin prick to face,arms,trunk,legs-compare side/side): 0-No Ataxia Best Language(name item/read sentence.Ex-Down to Earth): 0-No Aphasia Dysarthria(Pt read words or say words Ex.Mama,Tip-Top,Thanks: 0-Normal Articulation Extinction and Inattention: 0-Normal NIH Total Score: 0 <Liberty Almanza - Last Filed: 02/21/19 20:31> This chart was documented by the indicated scribe, (Jordan Goodman, Cammieibe) and accurately reflects the services I performed and decisions made by me, Jac Little MD, as attested by the provider's signature.
[2019-02-21 18:41] LABS: PTT 30.7 Seconds (22.3-41.8)
[2019-02-21 18:51] LABS: URINE SOURCE CLEAN CATCH
[2019-02-21 18:57] LABS: BILIRUBIN URINE NEGATIVE (NEGATIVE); BLOOD URINE NEGATIVE (NEGATIVE); COLOR YELLOW; GLUCOSE URINE TRACE mg/dL (NEGATIVE); KETONE URINE TRACE mg/dL (NEGATIVE); LEUKOCYTES URINE MODERATE (NEGATIVE); NITRITE URINE POSITIVE (NEGATIVE); PROTEIN URINE TRACE mg/dL (NEGATIVE); SP GRAVITY URINE 1.019; TURBIDITY URINE CLEAR (CLEAR); UROBILINOGEN URINE NORMAL (NORMAL)
[2019-02-21 18:59] LABS: AGAP 11; ALBUMIN 4.1 g/dL (3.5-5.0); ALKALINE PHOSPHATASE 86 U/L (32-122); BUN 16 mg/dL (8-22); CALCIUM 9.6 mg/dL (8.8-10.2); CHLORIDE 103 mmol/L (98-107); COSMO 288; CREATININE 0.8 mg/dL (0.7-1.2); ESTIMATED GFR > 60; GLUCOSE 164 mg/dL (70-104); GOT 29 U/L (10-34); GPT 33 U/L (10-44); SODIUM 142 mmol/L (136-145); TCO2 28 mmol/L (25-35); TOTAL BILIRUBIN < 0.15 mg/dL (0.20-1.00); TOTAL PROTEIN 6.8 g/dL (6.3-8.3)
[2019-02-21 19:08] LABS: UR AMPHETAMINES QUAL NONE DETECTED (NONE DETECT); UR BARBITUATES QUAL NONE DETECTED (NONE DETECT); UR BENZODIAZEPIN QUAL NONE DETECTED (NONE DETECT); UR CANNABINOIDS QUAL NONE DETECTED (NONE DETECT); UR COCAINE QUAL NONE DETECTED (NONE DETECT); UR METHADONE QUAL NONE DETECTED (NONE DETECT); UR METHAMPHETAMINE QUAL NONE DETECTED (NONE DETECT); UR OPIATES QUAL NONE DETECTED (NONE DETECT); UR OXYCODONE QUAL NONE DETECTED (NONE DETECT); UR PCP QUAL NONE DETECTED (NONE DETECT); UR PROPOXYPHENE QUAL NONE DETECTED (NONE DETECT); UR TCA QUAL NONE DETECTED (NONE DETECT)
[2019-02-21 19:20] LABS: UR EPITHELIAL CELLS >10 /HPF (<10); URINE BACTERIA 2+ /HPF; URINE CASTS NONE SEEN; URINE CRYSTALS NONE SEEN; URINE SMALL ROUND CELLS NONE SEEN; URINE YEAST NONE SEEN
--- NOTE | 2019-02-21 19:36 | Diag Imaging Result Doc PS360 ---
EXAM: CHEST-PORTABLE INDICATION: stroke like symptoms TECHNIQUE: One view COMPARISON: 10/11/2018 FINDINGS: There is stable mild elevation of the right hemidiaphragm. The lungs are grossly clear. There is no discrete pleural fluid collection or pneumothorax. The cardiomediastinal silhouette and central vasculature are grossly unremarkable. IMPRESSION: No evidence of acute pathology by plain radiograph. Electronically signed by Trey Maier 02/21/2019 7:34 PM
--- NOTE | 2019-02-21 19:46 | Diag Imaging Result Doc PS360 ---
EXAM: CT HEAD W/O CONTRAST INDICATION: stroke like symptoms TECHNIQUE: This exam was performed using automated exposure control, adjustment of mA or kV according to patient size, and/or use of iterative reconstruction technique. COMPARISON: 10/11/2018 FINDINGS: There is no definite acute infarct given the limited sensitivity of CT versus MRI. There is no discrete intracranial mass, mass effect, or intracranial hemorrhage. The surrounding soft tissues and bony structures are essentially unremarkable. IMPRESSION: No evidence of acute intracranial pathology. Electronically signed by Trey Maier 02/21/2019 7:43 PM
[2019-02-21] MEDS ORDERED: ROCEPHIN 1 GM in NS 50 ML IV ONE (19:47)
[2019-02-21] MEDS ORDERED: TUMS PO ONE (19:57)
[2019-02-21] MEDS ORDERED: ASPIRIN PO ONE (20:08)
--- NOTE | 2019-02-22 00:17 | EKG Report ---
Test Performed on : 02/21/2019 7:27:05 PM Test Reason : Stroke like symptoms Blood Pressure : / mmHG Vent. Rate : 093 BPM Atrial Rate : 093 BPM P-R Int : 138 ms QRS Dur : 084 ms QT Int : 356 ms P-R-T Axes : 055 007 048 degrees QTc Int : 442 ms Normal sinus rhythm. Normal ECG When compared with ECG of 26-AUG-2018 20:54, No significant change was found Unconfirmed Result
[2019-02-22] MEDS ORDERED: ZOFRAN IV PRN (12:48)
[2019-02-22] MEDS ORDERED: TYLENOL PO PRN (12:48)
[2019-02-22] MEDS ORDERED: HALDOL IV PRN (12:58)
--- NOTE | 2019-02-22 15:09 | HISTORY AND PHYSICAL ---
PRIMARY CARE PROVIDER: No primary care physician. CHIEF COMPLAINT: Reported seizure-like activity and passed out. HISTORY OF PRESENT ILLNESS: Mr. Shane Dumont is a 63-year-old, - [place] male with a history of CVA and right-sided hemiparesis but just trace. He also has residua of decreased sensation on the right, behavioral disturbances, decreased taste, decreased ability to swallow. Comes in via ambulance. Apparently, the niece, who is at the bedside, states that her mother called her. The patient was at [facility] in [place]. He remembers taking a bite but having difficulties with swallowing it. He thought he spit it back out. The niece went to [facility], got him, was bringing him to the hospital when he had a sudden onset of seizure- like activity with full body contraction. No reported loss of bowel or bladder but she said his tongue was hanging out. He was foaming and passed out. Prior to that, he was responsive. She said he stayed passed out. Ambulance came and got him from a location in [place], and brought him here to [facility] where he was back awake again. He has not been on any of his medications at home. He has actually been in [facility]. Apparently, 2 weeks after his discharge in May, he went to [facility] for what the family reports of public intoxication, which they state is untrue but he was there until 1 week ago when he was let out. Apparently, he is living with his grandmother. He also states he is not diabetic but had a hemoglobin A1c of 12 back in May and was actually drinking a regular Mountain Dew and a chocolate candy bar upon examination and assessment. He obviously was having some issues with eating and swallowing while he was talking to me. Despite that, he continued to eat. He wanted to refuse that he has diabetes but discussion between him, his niece, and nephew about the fact that he actually does have diabetes, pretty uncontrolled diabetes. As far as seizures are concerned, he denies ever having a seizure before. The head CT was negative. His workup for stroke has already been performed this year. He did have a negative head CT but we will go ahead and get another MRI in the morning. We will get an EEG. Consult neurology in the morning. PAST MEDICAL HISTORY: 1. CVA with right-sided residual, with behavioral disturbance, with decreased taste, decrease in smell, decreased sensation on the right, and dysphagia. 2. Diabetes mellitus type 2, uncontrolled and untreated with having a hemoglobin A1c of 12.1 on 06/03/2018. 3. Hypertension, also untreated. 4. Complaints of erectile dysfunction. SURGICAL HISTORY: Cholecystectomy. SOCIAL HISTORY: from his . He lives with his grandmother. Denies tobacco, alcohol, or illicit drug use. He has to use a cane for safe ambulation but tends to not use one. FAMILY HISTORY: Mother and father both had diabetes on their side of the family. ALLERGIES: No known drug allergies. HOME MEDICATIONS: None. REVIEW OF SYSTEMS: Fourteen point review of systems are complete and all were negative except for those mentioned above in the HPI. He denies any urinary symptoms except he does have frequent urination. Coughing up yellow, cream-colored phlegm. PHYSICAL EXAMINATION: VITAL SIGNS: Temperature 97.7 degrees, heart rate 92, respiratory rate 18, blood pressure 156/78, O2 saturation 100% on room air. GENERAL: Mr. Shane Dumont is a 63-year-old, -[place] male. He is in no acute distress. He is able answer questions appropriately. HEENT: Atraumatic, normocephalic. Pupils equal, round, reactive to light. Extraocular movements intact. Mucous membranes are moist. NECK: Trachea midline. CARDIOVASCULAR: S1, S2. Regular rate and rhythm. No rubs, gallops, murmurs. No lower extremity edema. There are +2 dorsalis and radial pulses. Negative JVD or carotid bruits. PULMONARY: Clear to auscultate bilateral breath sounds. No accessory muscle use or work of breathing noted. GI: Soft, nontender, nondistended. Positive bowel sounds x4. EXTREMITIES: Moves all extremities equally but decreased range of motion on the right. Coordination decreased on the right and decreased sensation on the right. SKIN: Warm, dry, intact. LABORATORY DATA: White blood cells 11,000, hemoglobin 10, hematocrit 34, platelet count 287,000. INR 0.84, PTT 30.7. Sodium 142, potassium 4.0, BUN 16, creatinine 0.8, glucose 164, calcium 9.6. Bilirubin is less than 0.15, AST 29, ALT 33. Troponin less than 0.01. Albumin 4.1. Triglycerides 265, total cholesterol 164. Urinalysis, trace protein, trace ketones, positive nitrites, moderate leukocytes, 10 to 20 white blood cells, greater than 10 epithelial cells, 2+ bacteria. Urine drug screen negative. IMAGING: Head CT, no acute findings. Chest x-ray, no acute findings other than he has got a right hemidiaphragm. EKG, normal sinus rhythm, rate 92, his QTc is 442. ASSESSMENT/PLAN: 1. Syncope with possible seizure. He will have an electroencephalogram in the morning. We will consult neurology. We will also get a brain MRI, MRA. 2. History of stroke with apparently multiple strokes since 2018 but his residuals are right- sided weakness. There is only trace weakness. He has got more of a balance disturbance than anything. He has dysphagia with it, which we will get a swallow evaluation. We will get physical therapy. Issues with sensation on the right side, also behavioral disturbance since his stroke. According to the family, this is not how he has ever been until he had a stroke. We are going to do aspirin. 3. Hypertriglyceridemia. We will add some fenofibrate. 4. Uncontrolled diabetes mellitus type 2. We will do pattern of blood glucoses and sliding scale insulin. We will add scheduled Lantus and a diabetic diet. 5. Urinary tract infection. He is on Rocephin. Only symptom is urinary frequency. He has positive nitrites. 6. Behavioral disturbances reported since he has had his stroke. He can easily get agitated here. He is okay as long as we do not make him stay in bed but we have got as needed Haldol if needed. 7. Deep venous thrombosis prophylaxis, Lovenox. Dictated by ROLA Rivera for Jorge Rangel MD Addendum: Patient seen and examined by myself. Agree with ROLA note. It reflects my assessment and plan. Patient is being admitted to hospital for syncope with possible seizure. He also had TIA. Will order MRI of brain, EEG and will consult Neurology tomorrow in AM. Will monitor patient closely. Will adjust medications for diabetes considering his very elevated HbA1c. cc: ROLA Rivera MD [facility]
[2019-02-22] MEDS: LANTUS INSULIN SUBQ SCH (15:14)
[2019-02-22] MEDS ORDERED: TRICOR PO SCH (21:00)
[2019-02-22] MEDS: HUMULIN R (PARKWAY) SUBQ SCH (22:44)
[2019-02-23 06:03] LABS: BASO# 0.06 X1000 (0.0-0.2); BASO% 0.7 % (0.0-0.8); EOS# 0.41 X1000 (0.0-0.7); EOS% 4.5 % (0.0-10.0); HEMATOCRIT 31.7 % (42.0-52.0); HEMOGLOBIN 9.9 g/dL (14.0-18.0); IMM GRAN# 0.02 X1000 (0.0-0.04); IMM GRAN% 0.2 % (0.0-0.5); LYMPH# 2.45 X1000 (1.2-3.4); LYMPH% 27.1 % (20.5-51.1); MCH 24.9 PG (27-31); MCHC 31.2 g/dL (33-37); MCV 79.6 FL (81-99); MONO# 0.76 X1000 (0.11-0.59); MONO% 8.4 % (1.7-9.3); MPV 9.8 FL (7.4-10.4); NEUT# 5.33 X1000 (1.4-6.5); NEUT% 59.1 % (42.2-75.2); PLT 280 X1000 (130-400); RBC 3.98 XMIL (4.7-6.1); RDW 14.8 % (11.5-14.5); WBC 9.03 X1000 (4.8-10.8)
[2019-02-23 06:12] LABS: HEMOGLOBIN A1C 7.3 % (4.8-6.0)
[2019-02-23] MEDS: HUMULIN R (PARKWAY) SUBQ SCH ×2 (06:27→11:30)
[2019-02-23 06:33] LABS: AGAP 10; ALBUMIN 3.5 g/dL (3.5-5.0); ALKALINE PHOSPHATASE 70 U/L (32-122); BUN 12 mg/dL (8-22); CALCIUM 8.8 mg/dL (8.8-10.2); CHLORIDE 102 mmol/L (98-107); COSMO 283; CREATININE 0.8 mg/dL (0.7-1.2); ESTIMATED GFR > 60; GLUCOSE 168 mg/dL (70-104); GOT 15 U/L (10-34); GPT 21 U/L (10-44); MAGNESIUM 1.9 mg/dL (1.5-2.7); POTASSIUM 3.6 mmol/L (3.5-5.1); SODIUM 140 mmol/L (136-145); TCO2 29 mmol/L (25-35); TOTAL PROTEIN 6.3 g/dL (6.3-8.3)
[2019-02-23] MEDS ORDERED: TYLENOL PO PRN (07:00)
[2019-02-23] MEDS ORDERED: LOVENOX SUBQ SCH (09:00)
[2019-02-23] MEDS ORDERED: LEVAQUIN PO SCH (09:00)
[2019-02-23] MEDS ORDERED: ASPIRIN PO SCH (09:00)
[2019-02-23] MEDS: LANTUS INSULIN SUBQ SCH (09:12)
--- NOTE | 2019-02-23 10:34 | PROGRESS NOTE ---
DATE: 02/23/2019 SUBJECTIVE: The patient reports feeling fine. Denies any fever, chills, or any other new neurological symptoms. OBJECTIVE: Vital Signs: Temperature 99.3 degrees, heart rate 87, respiratory rate 18, blood pressure 126/54, O2 saturation 99% on room air. General: This is a 63-year-old male in no acute distress, sitting in the chair. Cardiovascular: S1, S2 heard. No murmurs, gallops, or rubs. Regular rate and rhythm. Respiratory: Clear bilaterally to auscultation. No work of breathing or using accessory muscles. Abdomen: Soft, nontender to palpation. Bowel sounds present. No organomegaly. Extremities: No clubbing, cyanosis, or edema. Peripheral pulses present in both legs. Neurological: Decreased right-sided mobility. Speech is intact. ASSESSMENT: 1. Syncope, possible seizure. 2. History of stroke with multiple strokes. 3. Hypertriglyceridemia. 4. Uncontrolled diabetes mellitus. 5. Urinary tract infection. PLAN: At this point, the patient has been admitted to the hospital for syncope with seizure-like activity, so EEG and MRI of the brain have been ordered. We have consulted Neurology, and will see what they have to say. Will adjust the doses of medications for diabetes mellitus type 2. For UTI, will continue with Rocephin. DISPOSITION: We will follow lead from Neurology. cc: Jorge Rangel MD
[2019-02-23] MEDS ORDERED: ROCEPHIN 1 GM in NS 50 ML IV SCH (13:00)
[2019-02-23 13:32] VITALS: BP 158/85
--- NOTE | 2019-02-23 16:36 | Diag Imaging Result Doc PS360 ---
EXAM: MRI BRAIN W/WO CONTRAST - 02/23/2019 HISTORY: seizure activity TECHNIQUE: MRI brain without and with contrast. Images are obtained prior to and following gadolinium administration. COMPARISON: 02/21/2019 CT head without contrast, 06/02/2018 MRI brain FINDINGS: There is a 1 cm area of restricted diffusion on the left emily. This is consistent with acute to subacute lacunar infarct. This was not seen on the prior MRI. The diffusion weighted images show no other areas of restricted diffusion. There are minimal chronic microvascular ischemic changes. There is no evidence of intracranial hemorrhage, mass effect, midline shift, or hydrocephalus. There is no abnormal enhancement identified. IMPRESSION: 1 cm acute to subacute lacunar infarct at left emily. Electronically signed by Ed Pruitt 02/23/2019 4:33 PM
--- NOTE | 2019-02-23 16:44 | Diag Imaging Result Doc PS360 ---
EXAM: MRA BRAIN W/O CONTRAST - 02/23/2019 HISTORY: seizure activity TECHNIQUE: MRA brain without contrast. [id number] MR angiogram of the intracranial circulation with 3-D MIP images is obtained. COMPARISON: 10/11/2018 CT angiogram head FINDINGS: There is mild stenosis of the intracranial right internal carotid is similar to prior. There is short segment tight stenosis at the intracranial left internal carotid similar to prior. There is no occlusion of major intracranial artery identified. The bilateral posterior cerebral arteries appear to receive most of their supply via the respective posterior communicating arteries. The left posterior communicating artery is noted to the generally larger in caliber than the right. There is no other substantial stenosis of major intracranial artery identified. IMPRESSION: Mild stenosis of the intracranial right internal carotid. Short segment tight stenosis of the intracranial left internal carotid. Electronically signed by Ed Pruitt 02/23/2019 4:42 PM
--- NOTE | 2019-02-23 19:01 | CONSULTATION ---
DATE OF CONSULTATION: 02/23/2019 Mr. Dumont is 63 years old and he presented after episode concerning for seizure. He told me he does not remember coming to the hospital and does not remember having any sort of episode prior to hospitalization. There is not family present now. Therefore, history is taken solely from review of the hospital notes for this admission and prior admissions. There is report of apparent transient loss of consciousness with foaming at the mouth and unresponsiveness. By report, this resolved spontaneously while he was in route to the hospital. He told me he was released from assisted 2 weeks ago and that he does not take any medicines. There is history of medullary infarction with prominent dysphagia occurring a year and a half or so ago. I did not see him then. I did see him when he was hospitalized in May this year with a global encephalopathy which resolved. His dysphagia continued prominent then. There was not evidence of new neurologic event then. Mr. Dumont told me he has not been aware of any prior stroke. He told me he is aware that he had the stroke affecting swallowing a year and a half ago and then he thinks he had another stroke while he was incarcerated 6 months ago. This may or may not correlate with the time that I saw him at [facility] 8 months ago. This admission, he has been afebrile. Heart rate has ranged 80s to 100s. Systolic blood pressures were 160s-170s initially, 120s-130s today. Lab shows anemia. Blood sugars have been moderately elevated 130s-180s. Urine drug screen was all negative. He told me that he does not use ethanol and does not even know what it tastes like. However, there is comment in 1 of the earlier notes that "public intoxication" may have occurred in the past. Of course, this might have been intoxication due to something other than ethanol. Workup this admission includes noncontrast CT of the head which shows nothing acute. CT scans on this patient have generally not shown the medullary infarction but MRI scan done 06/02/2018 showed some uncertain changes and prior MRI 07/29/2017 showed area of restricted diffusion in the posterior superior medulla on the left. EEG this morning shows nothing remarkable, normal EEG, no epileptiform discharge. On exam now, Mr. Dumont is awake, alert, quite cheerful, chuckling, mostly attentive. He has mild right hemiparesis grading 4+/5 mostly at the shoulder. He had very slight difficulty with right [id number]. He reports symmetric sensation over the hands. Gait is unremarkable. Visual izaguirre are full. Tongue is midline. Palate is midline. Speech is slightly dysarthric but much improved compared to when I last heard him speak 8 months ago. I observed him become strangled on his saliva and he quickly and appropriately used the suction to manage that. IMPRESSION: 1. Recent episode of unconsciousness or altered awareness. Explanation is not certain. I do not see anything in the lab work to indicate likely toxic or metabolic state. I have not spoken to firsthand witness. Seizure has been a consideration, but we would not generally expect seizure with old medullary infarction. I If he has more episodes, we might consider adding medicine for seizure control but I am reluctant to start that now due to concern he would not be compliant and concern that seizure medication might have adverse effect on his baseline psychiatric and/or personality problem. 2. 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 I do not see evidence of new infarction on this admission. 3. I believe he has baseline psychiatry problems. I am not certain how well those have been evaluated in recent months. I am not certain his history is completely accurate but, based on his report and available information, I do not think we have to do anything more urgently. Thanks for asking Neurology to see Mr. Dumont. I will be glad to see him again if needed. cc: MD WARREN Vasquez III
--- NOTE | 2019-02-23 19:59 | EEG REPORT ---
DATE: 02/22/2019 EEG NUMBER: [id number] COMMENT: This is a digitally recorded EEG on a 63-year-old patient with history of medullary infarction, dysphagia, recent episode with question of seizure. FINDINGS: During waking, medium amplitude 9 hertz posterior rhythm is present bilaterally and reacts at times to eye opening. Background contains polymorphic and rhythmic theta frequencies over the frontal and central regions symmetrically. Drowsing occurred with attenuation of the posterior rhythm and appearance of more generalized slowing. Stage 2 sleep was not recorded. Photic stimulation did not significantly alter the record. Hyperventilation was not done. No definite epileptiform discharge was identified. INTERPRETATION: Normal EEG. CORRELATION: The absence of epileptiform discharges on a single EEG does not exclude a clinical diagnosis of seizures, but there is nothing on this record to establish the presence of a seizure disorder. cc: MD Ana Vasquez III, CRNP MTDD
--- NOTE | 2019-02-25 08:05 | DISCHARGE SUMMARY ---
ADMISSION DATE: 02/21/2019 DISCHARGE DATE: 02/23/2019 HOSPITAL COURSE: Basically, the patient was admitted to the hospital for TIA symptoms and apparently seizure-like activity. We admitted this patient to the hospital. We ordered MRI of the brain, which basically showed a 1 cm acute subacute lacunar infarct at the left emily, and also the brain MRA showed mild stenosis of the intracranial right carotid artery. We have consulted Neurology, and also we ordered an EEG that returned normal. We were monitoring this patient closely, but the day after admission, he decided to leave the hospital AGAINST MEDICAL ADVICE. cc: Jorge Rangel MD
== END 2019-02-23 18:00 | disposition left against medical advice (07) | DRG 65 ==
LOC: P.ED 17:35 → P.MEDSURG 17:35
PROVIDERS: ATTEND Internal Medicine

== ENCOUNTER 2019-03-02 22:33 | Inpatient (IN) ==
[2019-03-02 23:07] LABS: BASO# 0.06 X1000 (0.0-0.2); BASO% 0.5 % (0.0-0.8); EOS# 0.35 X1000 (0.0-0.7); EOS% 2.8 % (0.0-10.0); HEMATOCRIT 36.9 % (42.0-52.0); HEMOGLOBIN 11.8 g/dL (14.0-18.0); IMM GRAN# 0.02 X1000 (0.0-0.04); IMM GRAN% 0.2 % (0.0-0.5); LYMPH# 3.24 X1000 (1.2-3.4); LYMPH% 25.5 % (20.5-51.1); MCH 25.5 PG (27-31); MCV 79.9 FL (81-99); MONO# 0.76 X1000 (0.11-0.59); NEUT# 8.27 X1000 (1.4-6.5); PLT 309 X1000 (130-400); RBC 4.62 XMIL (4.7-6.1); RDW 15.8 % (11.5-14.5)
[2019-03-02 23:19] LABS: INR 0.88; PROTIME 12.4 Seconds (11.0-16.0)
[2019-03-02 23:26] LABS: AGAP 14; ALBUMIN 4.2 g/dL (3.5-5.0); ALKALINE PHOSPHATASE 80 U/L (32-122); BUN 13 mg/dL (8-22); CALCIUM 9.6 mg/dL (8.8-10.2); CHLORIDE 96 mmol/L (98-107); COSMO 271; CREATININE 0.7 mg/dL (0.7-1.2); ESTIMATED GFR > 60; GLUCOSE 177 mg/dL (70-104); GOT 19 U/L (10-34); GPT 11 U/L (10-44); POTASSIUM 4.1 mmol/L (3.5-5.1); SODIUM 133 mmol/L (136-145); TCO2 23 mmol/L (25-35); TOTAL PROTEIN 7.6 g/dL (6.3-8.3)
[2019-03-03] MEDS ORDERED: NS 1,000 ML IV ONE (00:02)
--- NOTE | 2019-03-03 00:24 | EKG Report ---
Test Performed on : 03/02/2019 11:07:47 PM Test Reason : weakness, ams Blood Pressure : / mmHG Vent. Rate : 086 BPM Atrial Rate : 086 BPM P-R Int : 142 ms QRS Dur : 080 ms QT Int : 382 ms P-R-T Axes : 068 041 051 degrees QTc Int : 457 ms Normal sinus rhythm. Possible Left atrial enlargement Borderline ECG When compared with ECG of 21-FEB-2019 19:27, (Unconfirmed) No significant change was found Unconfirmed Result
--- NOTE | 2019-03-03 00:29 | PROVIDER DOCUMENTATION ---
This chart was entered by Florencia Maier Scribe, acting as scribe for Paloma Albarran DO. HPI-General Adult - General Stated Complaint: hypertension/AMS/Weakness Time Seen by Provider: 03/02/19 22:33 Source: patient, EMS Allergies/Adverse Reactions: Patient Allergies Allergy/AdvReac Type Severity Reaction Status Date / Time No Known Allergies Allergy Verified 03/11/19 14:38 Home Medications: Home Medication List Medication Instructions Recorded Confirmed Last Taken Type ATORVAstatin [Lipitor] 40 mg PO QHS #90 tab 03/16/19 Unknown Rx Acetaminophen [Tylenol] 650 mg PO Q6H PRN PRN tab 03/16/19 Unknown Rx Amlodipine [Norvasc] 5 mg PO BID #90 tab 03/16/19 Unknown Rx Aspirin 325 mg PO DAILY #90 tab 03/16/19 Unknown Rx Folic Acid 1 mg PO DAILY #90 tab 03/16/19 Unknown Rx Iron Carbonyl/Ascorbic Acid 1 ea PO BID #180 tab 03/16/19 Unknown Rx [Icar-C] Metformin [Glucophage] 500 mg PO BID #180 tab 03/16/19 Unknown Rx - History of Present Illness -Gen Adult Nature of Presenting Problems: pt is a 63 yobm presenting w/ems w/cc HTN, ams, and weakness starting today. pt is oriented to place, self unsure of time and exact month. hx cva x 2. Location of Pain/Injury: reports: none Pain Radiation: reports: no radiation Quality of Pain: reports: none Severity: reports: mild Onset/Duration: reports: other (today) Timing: reports: improving Context/Activities at Onset: reports: none Modifying Factors: improves with: nothing Associated Symptoms: reports: weakness, other (HTN and ams) Review of Systems - Adult - REVIEW OF SYSTEMS - ADULT Constitutional: reports: see HPI, other (AMS). denies: chills, fever, fatique Eyes: reports: no symptoms reported Ears, Nose, Mouth & Throat: reports: no symptoms reported Cardiovascular: reports: see HPI, other (HTN). denies: chest pain, palpitations, syncope Respiratory: reports: no symptoms reported Gastrointestinal: reports: no symptoms reported Genitourinary: reports: no symptoms reported Musculoskeletal: reports: see HPI, muscle weakness. denies: bone pain, back pain, muscle aches Integumentary: reports: no symptoms reported Neurological: reports: no symptoms reported Psychiatric: reports: no symptoms reported Endocrine: reports: no symptoms reported Hematologic/Lymphatic: reports: no symptoms reported Allergic/Immunologic: reports: no symptoms reported All Other Systems: Reviewed and Negative Past History - Adult - PAST MEDICAL HISTORY-ADULT Review of Records: reports: Nursing Assessment Review, Medications Reviewed, Social history reviewed & non-contributory. Major Childhood Illnesses: reports: denies history Cardiovascular: reports: HTN Respiratory: reports: denies history Gastrointestinal: reports: GERD Obstetrical/Gynecological: reports: denies history Genitourinary: reports: denies history Musculoskeletal: reports: denies history Neurological: reports: CVA Psychiatric: reports: psychiatric problems Endocrine/Immune: reports: denies history Other Conditions: reports: denies history - PRIOR SURGERIES/PROCEDURES Surgical/Procedure History: reports: cholecystectomy, other - IMMUNIZATION STATUS Childhood Immunizations: See Nurse Assessment Flu Vaccine: See Nurse Assessment - FAMILY HISTORY Family History: CVA/TIA (pt family reports pt has prior stroke) - SOCIAL HISTORY Smoking: non-smoker Substance Use: none/never Physical Exam-General - PHYSICAL EXAM-ADULT Initial Vital Signs Reviewed: Yes - CONSTITUTIONAL General Appearance: appears well, alert, no apparent distress. negative: lethargic, obtunded, combative - EYES Eyes: PERRL/EOMI, pink conjunctivae - HEAD, EARS, NOSE, MOUTH & THROAT HENMT: normocephalic/atraumatic, moist mucous membranes - NECK Neck: non-tender, full range of motion, supple, normal inspection - RESPIRATORY Respiratory: chest non-tender, lungs clear, normal breath sounds - CARDIOVASCULAR Cardiovascular: normal peripheral pulses, regular rate, rhythm - GASTROINTESTINAL (ABDOMEN) Abdominal Exam: normal bowel sounds, non tender, soft - MUSCULOSKELETAL Back Exam: normal inspection Extremity: normal range of motion, non-tender, normal inspection Peripheral Pulses: radial (R): 2+, radial (L): 2+ - SKIN Integumentary: normal color, normal turgor, warm/dry - NEUROLOGIC Neurologic: cost accounting manager II-XII nml as tested, no motor/sensory deficits. negative: facial droop - PSYCHIATRIC Psych/Mental Status: normal mood/affect, normal thought content, normal thought process. negative: oriented x 3 (a&ox2.) Progress - PLAN OF CARE/RESULTS Progress/Plan/Lab Results: Orders Category Date Time Status CHEST-1 VIEW [RAD] Stat Exams 03/02/19 22:[address] HEAD W/O CONTRAST [CT] Stat Exams 03/02/19 22:29 Ordered CBC WITH ELECTRONIC DIFF [HEME] Stat Lab 03/02/19 22:30 Uncollected COMPREHENSIVE METABOLIC PANEL [CHEM] Stat Lab 03/02/19 22:30 Uncollected PROTIME WITH INR [COAG] Stat Lab 03/02/19 22:30 Uncollected TROPONIN T Stat Lab 03/02/19 22:30 Ordered EKG [EKG] Stat Ther 03/02/19 22:30 Ordered The pt remained clinically stable with clear speech under my care. He did remain confused to his whereabouts. He did not have deterioration of his neuro status. CT head shows lacunar infarct of unknown age that was not present on prior study. CTA neck does not show significant occlusions, but CTA head shows basilar artery occlusion. The time of onset of his symptoms tonight is not known. I discussed his care with the hospitalist service who admitted him for further evaluation and treatment. Result Diagrams: 03/04/19 05:20 03/04/19 05:20 - EKG 1 Time of EKG reading by physician:: 23:07 EKG Read and Signed by:: Paloma Albarran EKG Interpretation (*Must complete 3 of following elements*): Normal (borderline) Rate: 86 Rhythm: NSR [place]: normal QRS: normal [place] Interval: normal ST Wave: normal Comments: possible left atrial enlargemnt - CT/MRI 1 CT Study: Head Impression: Abnormal, See EMR Report (Impression: High-grade stenosis or oculsion of the istal V4 segmentss of the vertebral arteries bilaterally and proximal basilar artery. The distal basal artery appears patent, poss secondary to retrograde flow through the patent bilateral posterior communicating arteries.) Departure - Departure Date of Disposition Decision: 03/03/19 Time of Disposition Decision: 00:10 DIAGNOSIS: CVA (cerebral vascular accident) Qualifiers: CVA mechanism: unspecified Qualified Code(s): I63.9 - Cerebral infarction, unspecified Disposition: ADMITTED INPATIENT 09 Certified Medical Emergency: Emergent Condition: Fair - Critical Care Note This patient required my direct & personal management of CC.: Yes Total Time (mins): 33 Critical Care Statement: This patient required my direct personal management to treat or rule out processes, the absence of which, could potentiallly result in sudden, clinically significant life or limb threatening deterioration. Attestation - Physician/ ALEXIS Attestation Patient care was provided by Advanced Practice Provider:: No The physician spent face to face time with patient:: Yes Advanced Practice Provider documentation review:: Supervising physician onsite and consulted in the evaluation and care of this patient. The physician did have a face to face encounter with the patient. This chart was documented by the indicated scribe, (Florencia Maier Scribe) and accurately reflects the services I performed and decisions made by me, Paloma Albarran DO, as attested by the provider's signature.
--- NOTE | 2019-03-03 05:58 | Diag Imaging Result Doc PS360 ---
EXAM: CT HEAD W/O CONTRAST HISTORY: AMS TECHNIQUE: CT head without contrast COMPARISON: 02/21/2019 FINDINGS: No parenchymal hemorrhage. No epidural or subdural hematoma. No subarachnoid hemorrhage. Lacunar infarct in the left side of the emily. This was not present on the prior exam. No mass identified on this noncontrasted exam. No hydrocephalus. No sinus opacification. IMPRESSION: 1.No hemorrhage 2.Lacunar infarct in the left emily. This does not appear acute, but was not present on the prior study. 3.A preliminary report was given at 11:13 PM on 03/02/2019 This exam was performed using automated exposure control, adjustment of mA or kV according to patient size, and/or use of iterative reconstruction technique. Electronically signed by Chad Dickey 03/03/2019 5:56 AM
--- NOTE | 2019-03-03 06:05 | Diag Imaging Result Doc PS360 ---
EXAM: CT ANGIOGRAM HEAD/NECK HISTORY: AMS. H/O CVA. TECHNIQUE: 1. CT angiogram neck with intravenous contrast. Arteriogram protocol with MIP images. 2. CT angiogram head with intravenous contrast. Arteriogram protocol with MIP images. COMPARISON: None. FINDINGS: CT angiogram neck: Normal left common carotid artery. Minimal plaque in the bulb with stenosis less than 40%. Normal right common carotid artery. No stenosis within the bulb. Normal right internal carotid artery. The vertebral arteries are very small. 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 Mild atherosclerosis in the distal internal carotid arteries bilaterally with stenoses of approximately 50%.. Normal filling of the anterior cerebral arteries. Normal filling of the middle cerebral arteries. No occlusions or stenoses. There are bilateral posterior communicating arteries which fill the posterior cerebral arteries. No aneurysms. IMPRESSION: CT angiogram neck: Mild stenosis in the left carotid bulb CT angiogram head: occluded basilar artery. Posterior communicating arteries supply the posterior cerebral arteries. A preliminary report was given at 11:55 PM on 03/02/2019 This exam was performed using automated exposure control, adjustment of mA or kV according to patient size, and/or use of iterative reconstruction technique. Electronically signed by Chad Dickey 03/03/2019 6:03 AM
--- NOTE | 2019-03-03 06:12 | Diag Imaging Result Doc PS360 ---
EXAM: CHEST-1 VIEW HISTORY: ams, weakness TECHNIQUE: Single view COMPARISON: 02/21/2019 FINDINGS: Poor inspiratory effort. No cardiomegaly. No pulmonary edema. No Pneumonia. No pleural effusions identified. IMPRESSION: Negative exam Electronically signed by Chad Dickey 03/03/2019 6:10 AM
[2019-03-03] MEDS ORDERED: NS 1,000 ML IV SCH (09:00)
--- NOTE | 2019-03-03 09:22 | HISTORY AND PHYSICAL ---
PRIMARY CARE PHYSICIAN: None. CHIEF COMPLAINT: Increased blood pressure, some confusion, and weakness that began yesterday. HISTORY OF PRESENTING ILLNESS: This is a 63-year-old -[place] male who presents to [facility] ER with complaints of an elevated blood pressure, some confusion, and weakness. It is noted that the patient has been hospitalized on 02/22/2019 through 02/25/2019 and had a brain MRI that showed a 1 cm acute subacute lacunar infarction at the left emily and a brain MRA that showed mild stenosis of the intracranial right carotid artery. He left AMA during that admission. He also left AMA during a May admission where he had another stroke. He has not been taking any medications, no aspirin, etc. due to him leaving against medical advice. Again, he does not have a primary care physician. So, he had a head CT last night in the emergency room that was compared to 02/21/2019 that showed a lacunar infarction in the left emily that did not appear acute but it was not present on that previous study. So, he was admitted for further evaluation and treatment. 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 There is also a question of some underlying psychiatric illness but we do not have specific diagnosis. PAST SURGICAL HISTORY: Cholecystectomy. FAMILY HISTORY: Reviewed and noncontributory. SOCIAL HISTORY: He currently lives alone, denies any tobacco, alcohol, or illicit drug use. ALLERGIES: He has no known drug allergies. HOME MEDICATIONS: He states he has not been taking any medication on a routine basis. LABORATORY DATA: Showed a white blood cell count of 12.70, hemoglobin 11.8, hematocrit 36.9, platelets 309. PT/INR 12.4 and 0.88. Sodium 133, potassium 4.1, chloride 96, CO2 23, BUN of 13, creatinine 0.7, glucose 177. Troponin was negative. A CT of the head showed a lacunar infarction in the left emily that did not appear acute but was not present on a prior study of 02/21/2019. Chest x-ray showed poor inspiratory effort, no cardiomegaly, no pulmonary edema. Electrocardiogram normal sinus rhythm at 86. Head and neck CT angiogram showed an impression of the neck with mild stenosis in the left carotid bulb, CT angiogram of the head showed occluded basilar artery, posterior communicating artery supplied the posterior cerebral arteries. REVIEW OF SYSTEMS: He denied any fever, chills, blurred vision, dizziness. He did have generalized weakness, states that his right-sided weakness is no worse than usual. Some confusion initially but that is improved. Denied any chest pain, coughing, shortness of breath. Denied any abdominal pain, constipation, diarrhea, burning or hurting with urination. PHYSICAL EXAMINATION: VITAL SIGNS: On arrival, he had a temperature of 98, pulse 84, respirations 16, blood pressure 164/91, saturating 98% on room air. GENERAL: This is a 63-year-old -[place] male, who is lying in the bed, initially did not want to answer questions because he was sleepy, pulled the covers over his head, but I turned the light on and he woke up to answer my questions appropriately at that time. HEEMNT: Normocephalic, atraumatic. Normal ENT inspection. Oropharynx and nares are clear. Eyes: Pupils are equal, round, and reactive to light and accommodation. Extraocular movements are intact. NECK: Normal inspection. Normal range of motion. LUNGS: Clear to auscultation bilaterally with equal lung expansion and chest wall movement. HEART: With regular rate and rhythm. No murmurs, rubs, or gallops. ABDOMEN: Soft, nontender, nondistended. Bowel sounds are present x4 quadrants. MUSCULOSKELETAL: He had 5/5 strength to his bilateral lower extremities, 4/5 strength to his left and 3/5 to his right. NEUROLOGICAL: Cranial nerves II through XII appear grossly intact. His right hand grasp is weaker than his left. ASSESSMENT: 1. A new lacunar infarction. 2. Hypertension. 3. Diabetes type 2 untreated. 4. Medical noncompliance. PLAN: He was admitted to the Medical unit, placed on telemetry, O2 per protocol. We are holding him n.p.o. as he is having a little difficulty controlling some secretions, so will do a modified barium swallow today. Will continue his normal saline at 100 mL/hour. I am going to give him an aspirin p.o. with a small sip of water, if he is unable to swallow that, I may have to change it to [place]. Will check a lipid profile and a hemoglobin A1c. I did discuss at length with this patient when he first stated that he does not take any medications because we did not give him any and upon further review of his medical records and admissions here he has left AMA each time he has been admitted the last 2-3 times, so this explains why he did not have any medication or any followup and he keeps returning with subsequent stroke due to nontreatment and that this is not going to end well if he does not receive appropriate treatment. The patient verbalizes understanding, so we will review his labs and further orders after seen by attending. Dictated by ROLA Oneill for Moi Jeffrey MD cc: ROLA Oneill MD
[2019-03-03] MEDS: ASPIRIN PO SCH ×2 (09:31→09:35)
[2019-03-03 09:55] LABS: HEMOGLOBIN A1C 7.7 % (4.8-6.0)
[2019-03-03] MEDS: HUMULIN R (PARKWAY) SUBQ SCH ×3 (11:13→23:11)
[2019-03-03] MEDS: NS 1,000 ML IV SCH (18:54)
[2019-03-03] MEDS ORDERED: LIPITOR PO SCH (21:00)
[2019-03-04] MEDS: NS 1,000 ML IV SCH ×2 (02:38→11:21)
[2019-03-04] MEDS ORDERED: LOVENOX SUBQ SCH (06:00)
[2019-03-04 06:08] LABS: BASO# 0.04 X1000 (0.0-0.2); BASO% 0.4 % (0.0-0.8); EOS# 0.27 X1000 (0.0-0.7); EOS% 2.7 % (0.0-10.0); HEMATOCRIT 37.9 % (42.0-52.0); HEMOGLOBIN 11.9 g/dL (14.0-18.0); IMM GRAN# 0.03 X1000 (0.0-0.04); IMM GRAN% 0.3 % (0.0-0.5); LYMPH# 2.49 X1000 (1.2-3.4); LYMPH% 24.7 % (20.5-51.1); MCH 24.7 PG (27-31); MCHC 31.4 g/dL (33-37); MCV 78.6 FL (81-99); MONO# 0.65 X1000 (0.11-0.59); MONO% 6.4 % (1.7-9.3); MPV 10.1 FL (7.4-10.4); NEUT% 65.5 % (42.2-75.2); PLT 350 X1000 (130-400); RBC 4.82 XMIL (4.7-6.1); RDW 15.7 % (11.5-14.5); WBC 10.08 X1000 (4.8-10.8)
[2019-03-04 06:25] LABS: AGAP 13; BUN 10 mg/dL (8-22); CALCIUM 8.7 mg/dL (8.8-10.2); CHLORIDE 103 mmol/L (98-107); COSMO 281; CREATININE 0.7 mg/dL (0.7-1.2); ESTIMATED GFR > 60; GLUCOSE 140 mg/dL (70-104); SODIUM 140 mmol/L (136-145); TCO2 24 mmol/L (25-35)
[2019-03-04] MEDS: ASPIRIN PO SCH (09:05)
[2019-03-04] MEDS: HUMULIN R (PARKWAY) SUBQ SCH (11:20)
[2019-03-04 11:36] VITALS: BP 127/93
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
== END 2019-03-04 15:22 | disposition left against medical advice (07) | DRG 66 ==
LOC: P.ED 22:33 → SUATTDRO 03-03 01:43 → P.MEDSURG 03-03 01:43
PROVIDERS: ATTEND Internal Medicine

== ENCOUNTER 2019-03-11 13:28 | Inpatient (IN) ==
[2019-03-11] MEDS ORDERED: NS 1,000 ML IV ONE (13:55)
[2019-03-11] MEDS ORDERED: ASPIRIN PO ONE (13:55)
--- NOTE | 2019-03-11 13:56 | Diag Imaging Result Doc PS360 ---
EXAM: CT HEAD W/O CONTRAST 03/11/2019 HISTORY: stroke symptoms TECHNIQUE: This exam was performed using automated exposure control, adjustment of mA or kV according to patient size, and/or use of iterative reconstruction technique. COMMENT: There are some calcifications in the left vertebral and both internal carotid arteries. There is no evidence of mass effect, bleed, or abnormal extra-axial fluid collection. The visualized paranasal sinuses are clear. The calvarium is intact. IMPRESSION: No evidence of acute intracranial disease. Electronically signed by Richard Franco 03/11/2019 1:54 PM
--- NOTE | 2019-03-11 14:11 | Diag Imaging Result Doc PS360 ---
EXAM: CHEST-PORTABLE 03/11/2019 HISTORY: stroke like symptoms TECHNIQUE: AP portable upright at 1402 COMMENT: The lungs are better expanded than on the previous study of 03/02/2019. Otherwise are has been no significant change. IMPRESSION: No acute disease. Electronically signed by Richard Franco 03/11/2019 2:08 PM
--- NOTE | 2019-03-11 14:16 | EKG Report ---
Test Performed on : 03/11/2019 2:12:47 PM Test Reason : Stroke like symptoms Blood Pressure : / mmHG Vent. Rate : 078 BPM Atrial Rate : 078 BPM P-R Int : 150 ms QRS Dur : 102 ms QT Int : 410 ms P-R-T Axes : 062 037 028 degrees QTc Int : 467 ms Normal sinus rhythm. Normal ECG When compared with ECG of 02-MAR-2019 23:07, (Unconfirmed) No significant change was found Unconfirmed Result
[2019-03-11 15:04] LABS: URINE SOURCE CLEAN CATCH
[2019-03-11 15:08] LABS: BASO# 0.04 X1000 (0.0-0.2); BASO% 0.4 % (0.0-0.8); EOS# 0.27 X1000 (0.0-0.7); EOS% 2.6 % (0.0-10.0); HEMATOCRIT 38.4 % (42.0-52.0); HEMOGLOBIN 12.3 g/dL (14.0-18.0); IMM GRAN# 0.02 X1000 (0.0-0.04); IMM GRAN% 0.2 % (0.0-0.5); LYMPH# 2.62 X1000 (1.2-3.4); LYMPH% 25.6 % (20.5-51.1); MCH 25.4 PG (27-31); MCV 79.3 FL (81-99); MONO# 0.48 X1000 (0.11-0.59); MONO% 4.7 % (1.7-9.3); MPV 10.4 FL (7.4-10.4); NEUT# 6.81 X1000 (1.4-6.5); NEUT% 66.5 % (42.2-75.2); PLT 362 X1000 (130-400); RBC 4.84 XMIL (4.7-6.1); RDW 15.3 % (11.5-14.5); WBC 10.24 X1000 (4.8-10.8)
[2019-03-11 15:09] LABS: BILIRUBIN URINE NEGATIVE (NEGATIVE); BLOOD URINE NEGATIVE (NEGATIVE); COLOR YELLOW; GLUCOSE URINE 70 mg/dL (NEGATIVE); KETONE URINE NEGATIVE (NEGATIVE); LEUKOCYTES URINE MODERATE (NEGATIVE); NITRITE URINE NEGATIVE (NEGATIVE); PH URINE 5.5; PROTEIN URINE TRACE mg/dL (NEGATIVE); SP GRAVITY URINE 1.025; TURBIDITY URINE CLEAR (CLEAR); UROBILINOGEN URINE NORMAL (NORMAL)
[2019-03-11 15:11] LABS: UR EPITHELIAL CELLS <10 /HPF (<10); URINE BACTERIA NEGATIVE /HPF; URINE RBC <10 /HPF (<10); URINE WBC 20-40 /HPF (<10)
[2019-03-11 15:15] LABS: INR 0.97; PTT 30.7 Seconds (22.3-41.8)
[2019-03-11 15:18] LABS: UR AMPHETAMINES QUAL NONE DETECTED (NONE DETECT); UR BARBITUATES QUAL NONE DETECTED (NONE DETECT); UR BENZODIAZEPIN QUAL NONE DETECTED (NONE DETECT); UR CANNABINOIDS QUAL NONE DETECTED (NONE DETECT); UR COCAINE QUAL NONE DETECTED (NONE DETECT); UR METHADONE QUAL NONE DETECTED (NONE DETECT); UR OPIATES QUAL NONE DETECTED (NONE DETECT); UR OXYCODONE QUAL NONE DETECTED (NONE DETECT); UR PCP QUAL NONE DETECTED (NONE DETECT)
[2019-03-11 15:26] LABS: AGAP 12; ALB/GLOB RATIO 1.3; ALBUMIN 3.9 g/dL (3.5-5.0); ALKALINE PHOSPHATASE 74 U/L (32-122); BUN 12 mg/dL (8-22); CALCIUM 8.9 mg/dL (8.8-10.2); CHLORIDE 104 mmol/L (98-107); COSMO 280; CREATININE 0.8 mg/dL (0.7-1.2); ESTIMATED GFR > 60; GLUCOSE 112 mg/dL (70-104); GOT 8 U/L (10-34); GPT 9 U/L (10-44); POTASSIUM 4.1 mmol/L (3.5-5.1); SODIUM 140 mmol/L (136-145); TCO2 24 mmol/L (25-35); TOTAL PROTEIN 6.9 g/dL (6.3-8.3)
[2019-03-11] MEDS ORDERED: ROCEPHIN 1 GM in NS 50 ML IV ONE (15:55)
--- NOTE | 2019-03-11 16:49 | PROVIDER DOCUMENTATION ---
This chart was entered by Alison Stratton Scribe, acting as scribe for Ladarius Ortiz MD. HPI-Neurological Disorder - General Chief Complaint: STROKE ALERT Stated Complaint: Stroke like sx Time Seen by Provider: 03/11/19 13:37 Source: patient Allergies/Adverse Reactions: Patient Allergies Allergy/AdvReac Type Severity Reaction Status Date / Time No Known Allergies Allergy Verified 03/11/19 14:38 Home Medications: Home Medication List Medication Instructions Recorded Confirmed Last Taken Type Aspirin 81 mg PO DAILY 03/11/19 03/11/19 03/11/19 History - History of Present Illness-Neuro Nature of Presenting Problem: Patient is a 63 year old male who presents to the ED via EMS with stroke like symptoms. States symptoms of abnormal speech, double vision, right facial droop and dizziness. Reports symptoms started prior to arrival. EMS states patient has a history of CVA 2 weeks ago with right side deficits but patient's family reported worsening of right side deficits. Patient denies headache. Severity: reports: mild Onset/Duration: reports: just prior to arrival Timing: reports: still present Context: reports: impaired speech (expressive aphasia and slurred), facial droop (right), other (right side weakness) Any recent trauma/injury?: reports: none Character of Deficits: reports: new weakness, impaired speech (expressive aphasia and slurred) New weakness or altered sensation location:: reports: RUE, RLE, right facial Cognitive Baseline: alert, oriented x3 Gait Baseline: uses a walker Associated Symptoms: reports: dizziness, vision changes (double) Similar Symptoms Previously?: Yes Recently seen or treated by another doctor?: Yes Review of Systems - Adult - REVIEW OF SYSTEMS - ADULT Constitutional: reports: no symptoms reported Eyes: reports: see HPI, double vision. denies: decreased vision, blurred vision Ears, Nose, Mouth & Throat: reports: no symptoms reported Cardiovascular: reports: no symptoms reported Respiratory: reports: no symptoms reported Gastrointestinal: reports: no symptoms reported Genitourinary: reports: no symptoms reported Musculoskeletal: reports: no symptoms reported Integumentary: reports: no symptoms reported Neurological: reports: see HPI, dizziness/vertigo, slurred speech, other (expressive aphasia, right side facial droop and weakness to RUE and RLE). denies: headache/migraines, numbness Psychiatric: reports: no symptoms reported Endocrine: reports: no symptoms reported Hematologic/Lymphatic: reports: no symptoms reported Allergic/Immunologic: reports: no symptoms reported All Other Systems: Reviewed and Negative Past History - Adult - PAST MEDICAL HISTORY-ADULT Review of Records: reports: Old Records Reviewed, Nursing Assessment Review, Medications Reviewed, Social history reviewed & non-contributory. Major Childhood Illnesses: reports: denies history Cardiovascular: reports: HTN Respiratory: reports: denies history Gastrointestinal: reports: GERD Obstetrical/Gynecological: reports: denies history Genitourinary: reports: denies history Musculoskeletal: reports: denies history Neurological: reports: CVA, TIA Psychiatric: reports: psychiatric problems Endocrine/Immune: reports: denies history Other Conditions: reports: denies history - PRIOR SURGERIES/PROCEDURES Surgical/Procedure History: reports: none - IMMUNIZATION STATUS Childhood Immunizations: See Nurse Assessment Flu Vaccine: See Nurse Assessment - FAMILY HISTORY Family History: CVA/TIA (pt family reports pt has prior stroke) - SOCIAL HISTORY Smoking: denies Substance Use: denies Physical Exam- Neurological - Physical Exam-Neuro Initial Vital Signs Reviewed: Yes General Appearance: alert, no apparent distress. negative: lethargic Eye Exam: bilateral eye: other (difficulty looking right. nystagmus ) HENMT: normocephalic/atraumatic, moist mucous membranes. negative: angioedema Head Injury: no evidence of injury. negative: active bleeding, lacerations Respiratory: chest non-tender, lungs clear, normal breath sounds. negative: crackles, stridor Cardiovascular: normal peripheral pulses, regular rate, rhythm. 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 negative: sensory deficit Neurologic: aphasia (expressive), facial droop (right), motor weakness (RUE and RLE), other (slurred speech). negative: sensory deficit Integumentary: normal color, normal turgor, warm/dry. negative: diaphoresis Psych/Mental Status: normal mood/affect, oriented x 3. negative: anxious Progress - PLAN OF CARE/RESULTS Progress/Plan/Lab Results: Vital Signs - 8 hr 03/11/19 13:59 Temperature 97.6 F Pulse Rate 84 Respiratory Rate 23 Blood Pressure 150/103 O2 Sat by Pulse Oximetry 99 Laboratory Results - last 24 hr 03/11/19 03/11/19 03/11/19 13:36 14:51 14:51 WBC 10.24 RBC 4.84 Hgb 12.3 L Hct 38.4 L MCV 79.3 L MCH 25.4 L MCHC 32.0 L RDW Std Deviation 15.3 H Plt Count 362 MPV 10.4 Immature Gran % (Auto) 0.2 Neut % (Auto) 66.5 Lymph % (Auto) 25.6 [place] % (Auto) 4.7 Eos % (Auto) 2.6 Baso % (Auto) 0.4 Immature Gran # (Auto) 0.02 Neut # (Auto) 6.81 H Lymph # (Auto) 2.62 [place] # (Auto) 0.48 Eos # (Auto) 0.27 Baso # (Auto) 0.04 PT INR PTT (Actin FS) Sodium Potassium Chloride Carbon Dioxide Anion Gap BUN Creatinine Estimated GFR/1.73 m2 BUN/Creatinine Ratio Glucose POC Glucose 104 Calculated Osmolality Calcium Total Bilirubin AST ALT Alkaline Phosphatase Troponin T Total Protein Albumin Globulin Albumin/Globulin Ratio Urine Source Urine Color Urine Turbidity Urine pH Ur Specific [place] Urine Protein Ur Glucose (Stick) Ur Ketones (Stick) Urine Blood Urine Nitrite Urine Bilirubin Urobilinogen Dipstick Urine Leukocytes Urine WBC (Auto) Urine RBC (Auto) U Epithel Cells (Auto) Urine Bacteria (Auto) Urine Opiates Screen Ur Oxycodone Screen Ur Methadone, Qual Ur Barbiturates Screen Ur Phencyclidine Scrn Ur Amphetamines Screen U Benzodiazepines Scrn Urine Cocaine Screen U Cannabinoids Screen Plasma/Serum Ethyl Alc 03/11/19 03/11/19 03/11/19 14:51 14:51 14:51 WBC RBC Hgb Hct MCV MCH MCHC RDW Std Deviation Plt Count MPV Immature Gran % (Auto) Neut % (Auto) Lymph % (Auto) [place] % (Auto) Eos % (Auto) Baso % (Auto) Immature Gran # (Auto) Neut # (Auto) Lymph # (Auto) [place] # (Auto) Eos # (Auto) Baso # (Auto) PT 13.0 INR 0.97 PTT (Actin FS) 30.7 Sodium 140 Potassium 4.1 Chloride 104 Carbon Dioxide 24 L Anion Gap 12 BUN 12 Creatinine 0.8 Estimated GFR/1.73 m2 > 60 BUN/Creatinine Ratio 15 Glucose 112 H POC Glucose Calculated Osmolality 280 Calcium 8.9 Total Bilirubin 0.40 AST 8 L ALT 9 L Alkaline Phosphatase 74 Troponin T < 0.010 Total Protein 6.9 Albumin 3.9 Globulin 3.0 Albumin/Globulin Ratio 1.3 Urine Source Urine Color Urine Turbidity Urine pH Ur Specific [place] Urine Protein Ur Glucose (Stick) Ur Ketones (Stick) Urine Blood Urine Nitrite Urine Bilirubin Urobilinogen Dipstick Urine Leukocytes Urine WBC (Auto) Urine RBC (Auto) U Epithel Cells (Auto) Urine Bacteria (Auto) Urine Opiates Screen Ur Oxycodone Screen Ur Methadone, Qual Ur Barbiturates Screen Ur Phencyclidine Scrn Ur Amphetamines Screen U Benzodiazepines Scrn Urine Cocaine Screen U Cannabinoids Screen Plasma/Serum Ethyl Alc 03/11/19 03/11/19 15:00 15:00 WBC RBC Hgb Hct MCV MCH MCHC RDW Std Deviation Plt Count MPV Immature Gran % (Auto) Neut % (Auto) Lymph % (Auto) [place] % (Auto) Eos % (Auto) Baso % (Auto) Immature Gran # (Auto) Neut # (Auto) Lymph # (Auto) [place] # (Auto) Eos # (Auto) Baso # (Auto) PT INR PTT (Actin FS) Sodium Potassium Chloride Carbon Dioxide Anion Gap BUN Creatinine Estimated GFR/1.73 m2 BUN/Creatinine Ratio Glucose POC Glucose Calculated Osmolality Calcium Total Bilirubin AST ALT Alkaline Phosphatase Troponin T Total Protein Albumin Globulin Albumin/Globulin Ratio Urine Source CLEAN CATCH Urine Color YELLOW Urine Turbidity CLEAR Urine pH 5.5 Ur Specific [place] 1.025 Urine Protein TRACE A Ur Glucose (Stick) 70 A Ur Ketones (Stick) NEGATIVE Urine Blood NEGATIVE Urine Nitrite NEGATIVE Urine Bilirubin NEGATIVE Urobilinogen Dipstick NORMAL Urine Leukocytes MODERATE A Urine WBC (Auto) 20-40 A Urine RBC (Auto) <10 U Epithel Cells (Auto) <10 Urine Bacteria (Auto) NEGATIVE Urine Opiates Screen NONE DETECTED Ur Oxycodone Screen NONE DETECTED Ur Methadone, Qual NONE DETECTED Ur Barbiturates Screen NONE DETECTED Ur Phencyclidine Scrn NONE DETECTED Ur Amphetamines Screen NONE DETECTED U Benzodiazepines Scrn NONE DETECTED Urine Cocaine Screen NONE DETECTED U Cannabinoids Screen NONE DETECTED Plasma/Serum Ethyl Alc Orders Category Date Time Status Cardiac Monitoring DIRECTED Care 03/11/19 13:54 Active Finger Stick Blood Sugar (ED) DIRECTED Care 03/11/19 13:54 Active Misc. NRSG Communication Order DIRECTED Care 03/11/19 13:54 Active Saline Loc NOW Care 03/11/19 13:54 Active CHEST-PORTABLE [RAD] Stat Exams 03/11/19 13:[address] HEAD W/O CONTRAST [CT] Stat Exams 03/11/19 13:35 Completed ALCOHOL BLOOD Stat Lab 03/11/19 14:51 Completed BLOOD CULTURE [BLDCUL] Stat Lab 03/11/19 16:16 Ordered CBC WITH ELECTRONIC DIFF [HEME] Stat Lab 03/11/19 14:51 Completed COMPREHENSIVE METABOLIC PANEL [CHEM] Stat Lab 03/11/19 14:51 Completed PROTIME WITH INR [COAG] Stat Lab 03/11/19 14:51 Completed PTT [COAG] Stat Lab 03/11/19 14:51 Completed TROPONIN T Stat Lab 03/11/19 14:51 Completed URINALYSIS W/POSS RFLX CULT [URINALYSIS] Stat Lab 03/11/19 15:00 Completed URINE CULTURE [RM] Routine Lab 03/11/19 16:33 Ordered URINE DRUG SCREEN Stat Lab 03/11/19 15:00 Completed 0.9% Sodium Chloride Inj [Ns] 1,000 ml Med 03/11/19 13:55 Discontinued IV 999 mls/hr Aspirin Med 03/11/19 13:55 Discontinued 325 mg PO NOW ONE CefTRIAXONE [Rocephin] 1 gm Med 03/11/19 15:55 Discontinued 0.9% Sodium Chloride Inj [Ns] 50 ml IV NOW EKG [EKG] Stat Ther 03/11/19 13:54 Draft Result Diagrams: 03/11/19 14:51 03/11/19 14:51 - EKG 1 Time of EKG reading by physician:: 14:12 EKG Read and Signed by:: Ladarius Ortiz EKG Interpretation (*Must complete 3 of following elements*): Normal Rate: 78 Rhythm: normal sinus rhythm [place]: normal QRS: other (high voltage) OK Interval: normal - XRAY 1 XRAY Study: Chest Impression: See EMR Report ( EXAM: CHEST-PORTABLE 03/11/2019 HISTORY: stroke like symptoms TECHNIQUE: AP portable upright at 1402 COMMENT: The lungs are better expanded than on the previous study of 03/02/2019. Otherwise are has been no significant change. IMPRESSION: No acute disease. Electronically signed by Richard Franco 03/11/2019 2:08 PM 03/11/19 1408 Interpreting Physician: Richard Franco MD Dictated Date/Time: 03/11/19 1408 cc: Ladarius Ortiz MD; None,PCP) - CT/MRI 1 CT Study: Head Impression: See EMR Report ( EXAM: CT HEAD W/O CONTRAST 03/11/2019 HISTORY: stroke symptoms TECHNIQUE: This exam was performed using automated exposure control, adjustment of mA or kV according to patient size, and/or use of ite rative reconstruction technique. COMMENT: There are some calcifications in the left vertebral and both internal carotid arteries. There is no evidence of mass effect, bleed, or abnormal extra-axial fluid collection. The visualized paranasal sinuses are clear. The calvarium is intact. IMPRESSION: No evidence of acute intracranial disease. Electronically signed by Richard Franco 03/11/2019 1:54 PM 03/11/19 1354 Interpreting Physician: Richard Franco MD Dictated Date/Time: 03/11/19 1353 cc: Ladarius Ortiz MD; None,PCP) - CONSULTS/PCP/HOSPITALIST Notification #1 *Consult/PCP/Hospitalist*: ROLA Ruffin for Hospitalist Time Discussed: 16:47 Reason/Comments: Dr. Ortiz consulted with Laly about patient Consult Disposition: Will see in ED, Admit Departure - Departure Date of Disposition Decision: 03/11/19 Time of Disposition Decision: 16:47 DIAGNOSIS: Transient ischemic attack (TIA), Encephalopathy acute UTI (urinary tract infection) Qualifiers: Urinary tract infection type: acute cystitis Hematuria presence: with hematuria Qualified Code(s): N30.01 - Acute cystitis with hematuria Disposition: ADMITTED INPATIENT 09 Certified Medical Emergency: Emergent Condition: Stable Referrals and Follow-Ups: None,PCP [Primary Care Provider] - - Critical Care Note This patient required my direct & personal management of CC.: No Attestation - Physician/ ALEXIS Attestation Patient care was provided by Advanced Practice Provider:: No The physician spent face to face time with patient:: Yes Advanced Practice Provider documentation review:: Supervising physician onsite and consulted in the evaluation and care of this patient. The physician did have a face to face encounter with the patient. This chart was documented by the indicated scribe, (Alison Stratton Derrick) and accurately reflects the services I performed and decisions made by me, Ladarius Ortiz MD, as attested by the provider's signature.
[2019-03-11] MEDS ORDERED: ZOFRAN IV PRN (18:13)
[2019-03-11] MEDS ORDERED: TYLENOL PO PRN (18:13)
--- NOTE | 2019-03-11 20:59 | HISTORY AND PHYSICAL ---
PRIMARY CARE PROVIDER: None. CHIEF COMPLAINT: Feeling real bad. Can't talk, see or walk. HISTORY OF PRESENT ILLNESS: Mr. Dumont is a 63-year-old male who is well known to our service this past year for a few admissions for CVAs. He has left AMA each time. He comes back to the ED complaining of feeling real bad, having double vision, having weakness in his legs since Saturday, multiple falls even with his walker, slurred speech. He reports he got so dizzy in [employer] today on the scooter that he had to come to the ED to be evaluated. Workup in the ED with a head CT does not show anything acute. Chest x-ray does not show any acute disease. His urinalysis does show some WBCs, some leukocytes, but he did not complain of any urinary symptom. He was given 1 dose of IV Rocephin. I will admit him and do another full neurological workup. He does report, from a previous ischemic stroke that he had back in 2018, that he has had some issues with his speech as well as with his secretions, but he reports he has no problems chewing his food or swallowing his food. He is currently sitting up in the bed and he is actively spitting in his green bag. He reports he does this all the time and has done so since 2018. PAST MEDICAL HISTORY: CVA x2 with right-sided residual weakness. Another admission on 03/03 that he did not stay to complete his workup, diabetes mellitus type 2, hypertension, question of underlying psychiatric illness without any specific diagnosis. PAST SURGICAL HISTORY: Cholecystectomy. FAMILY HISTORY: Reviewed and noncontributory. SOCIAL HISTORY: He lives with his sister. He does use a walker to get around at home. He denies any tobacco, alcohol or illicit drug use. ALLERGIES: No known drug allergies. HOME MEDICATION: He takes a low-dose aspirin a day. REVIEW OF SYSTEMS: Completely negative except for those mentioned in HPI. PHYSICAL EXAMINATION: VITAL SIGNS: Temperature is 97.6 degrees, heart rate 84, respirations 23, blood pressure 150/103, O2 is 99% on room air. GENERAL: Mr. Dumont is a 63-year-old gentleman who initially was lying on the stretcher completely covered from head-to-toe with his blanket. Upon arrival to the room, he did sit up in the bed, started spitting in his green bag. He is in no acute distress. HEENT: Atraumatic, normocephalic. PERRL. NECK: Supple. Trachea midline. CARDIOVASCULAR: S1, S2 appreciated. No murmurs, gallops, rubs noted. RESPIRATORY: Lung sounds clear bilaterally. GI: Was soft, nontender, nondistended. Positive bowel sounds 4 quadrants. EXTREMITIES: Lower extremities were negative for edema. NEUROLOGIC: He is awake. He is alert. He does have some residual slurred speech. He reports some of that is normal for him and sometimes he gets flustered when he cannot get his words out. MUSCULOSKELETAL: He has about 5/5 on the left, 4 to 5 on the right. He is answering all questions appropriately. ASSESSMENT AND PLAN: 1. We will rule out a new cerebrovascular accident with another full neurological workup. He does have a history of lacunar infarcts as well as a medullary infarct in 2018. We will continue on full-dose aspirin, Lipitor, starting on Norvasc for his hypertension. Check a lipid profile, hemoglobin A1c, brain MRI, MRA carotids in the a.m., echocardiogram. 2. Hypertension. Continue Norvasc. 3. Diabetes mellitus type 2. He has been hydrated. We will check hemoglobin A1c. Started on sliding scale and pattern blood sugars. 4. Medical noncompliance. 5. Further recommendations to follow physician evaluation, laboratory and diagnostic data. Dictated by ROLA Jensen for Faustino Villavicencio MD cc: Faustino Villavicencio MD
--- NOTE | 2019-03-11 21:01 | HISTORY AND PHYSICAL ---
ADDENDUM: The patient was seen and examined by me [id number]. All the laboratory, vital signs and images were reviewed. The patient presented to the emergency department due to stroke-like symptoms. As per the patient, he started having speech problems/slurred speech, dizziness and diplopia since last Saturday, and the patient also has been falling because of this. I do not see any focal weakness at the level of the extremities. I do not see any arrhythmia on the electrocardiogram, but this probably is some stroke due to his symptoms. He has a past medical history of multiple strokes, and he has been hospitalized multiple times here in this hospital, and actually, he had an MRI done last month on 02/23/2019 that showed a 1 cm subacute lacunar infarct at the left emily, but he left AMA in that opportunity. As per the patient, the only medication he takes at home is aspirin. He does not take anything for dyslipidemia or hypertension. As per the patient, he has never been prescribed with any other medications. He is not having any problem swallowing. Apparently, he has been eating. We will get an MRI tomorrow and echocardiogram and also a carotid ultrasound that was done before on 07/29/2017 and showed less than 80% stenosis bilaterally. It looks like this patient is noncompliant with the medications and also probably this patient has some kind of personality disorder and/or psychiatric issue, we will check the lipid panel as well and actually this patient should be on at least Lipitor. His blood pressure has been elevated on the monitor and also has been reported to be around 150/103. Since the symptoms started last Saturday, I do believe we can start treating this blood pressure. I agree with the rest of the nurse practitioner's assessment and plan. cc: Faustino Villavicencio MD
[2019-03-11] MEDS: NORVASC PO SCH (23:07)
[2019-03-11] MEDS: LIPITOR PO SCH (23:08)
[2019-03-11] MEDS: HUMALOG SUBQ SCH (23:08)
[2019-03-12] MEDS: HUMALOG SUBQ SCH ×4 (07:19→22:37)
[2019-03-12 07:49] LABS: BASO# 0.04 X1000 (0.0-0.2); BASO% 0.4 % (0.0-0.8); EOS# 0.35 X1000 (0.0-0.7); EOS% 3.9 % (0.0-10.0); HEMATOCRIT 39.1 % (42.0-52.0); HEMOGLOBIN 12.5 g/dL (14.0-18.0); LYMPH# 2.36 X1000 (1.2-3.4); MCH 25.4 PG (27-31); MCV 79.3 FL (81-99); MONO# 0.41 X1000 (0.11-0.59); MONO% 4.5 % (1.7-9.3); MPV 10.7 FL (7.4-10.4); NEUT% 65.2 % (42.2-75.2); PLT 388 X1000 (130-400); RBC 4.93 XMIL (4.7-6.1); RDW 15.2 % (11.5-14.5); WBC 9.06 X1000 (4.8-10.8)
[2019-03-12 08:04] LABS: HEMOGLOBIN A1C 7.2 % (4.8-6.0)
[2019-03-12 08:22] LABS: AGAP 12; BUN 11 mg/dL (8-22); CALCIUM 8.7 mg/dL (8.8-10.2); CHLORIDE 101 mmol/L (98-107); COSMO 276; CREATININE 0.8 mg/dL (0.7-1.2); ESTIMATED GFR > 60; GLUCOSE 120 mg/dL (70-104); POTASSIUM 3.4 mmol/L (3.5-5.1); SODIUM 138 mmol/L (136-145); TCO2 25 mmol/L (25-35)
[2019-03-12] MEDS: NORVASC PO SCH ×2 (10:35→20:39)
[2019-03-12] MEDS: ASPIRIN PO SCH (10:35)
--- NOTE | 2019-03-12 11:15 | Diag Imaging Result Doc PS360 ---
EXAM: MRI BRAIN W/WO CONTRAST INDICATION: stroke COMPARISON: MRI brain dated 02/23/2019 FINDINGS: There is a subacute infarct in the emily on the left that was also seen on the previous study. However, it is larger suggesting a possible more recent component at its periphery. There are also new patchy infarcts involving the right middle cerebellar peduncle, the right cerebellar hemisphere, and a smaller acute infarct associated with the left cerebellar hemisphere. There is associated T2/FLAIR hyperintensity in these regions. There is stable mild periventricular and subcortical white matter microangiopathy. There is no discrete intracranial mass, mass effect, or intracranial hemorrhage. There is no evidence of abnormal intracranial enhancement. The surrounding soft tissues and bony structures are essentially unremarkable. IMPRESSION: Aging subacute left pontine lacunar infarcts that is larger than the previous study and several new acute lacunar infarcts associated with the right middle cerebellar peduncle, the right cerebellar hemisphere, and the left cerebellar hemisphere that were not present on the previous study. Electronically signed by Trey Maier 03/12/2019 11:12 AM
--- NOTE | 2019-03-12 11:33 | Diag Imaging Result Doc PS360 ---
EXAM: MRA BRAIN W/O CONTRAST INDICATION: stroke TECHNIQUE: 3-D [id number] images and 3-D MIPS were obtained. COMPARISON: 02/23/2019 FINDINGS: There is diminished signal associated with the basilar artery as compared to the previous study suggesting at least partial occlusion or recent occlusion with partial recannulization. This could explain the recent infarcts associated with the emily and right cerebellar peduncle, which are supplied by the basilar artery perforators as well as infarcts in the AICA and SCA distribution on the right and the SCA distribution on the left, which are branches from the basilar artery. The right vertebral artery terminates in PICA. The left vertebral artery is patent. There is focal moderate stenosis associated with the left carotid siphon and milder stenosis associated with the right carotid five and. Otherwise, the arteries comprising the [place] including the anterior, middle, and posterior cerebral arteries exhibit no flow-limiting stenosis, vascular malformation, or aneurysm. 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 Electronically signed by Trey Maier 03/12/2019 11:31 AM
--- NOTE | 2019-03-12 19:00 | PROGRESS NOTE ---
DATE: 03/11/2019 SUBJECTIVE: No acute events overnight. This patient is still having double vision and dizziness. We did an MRI that showed an aging subacute left pontine lacunar infarct that is larger than the previous study, and several new acute lacunar infarcts associated with the right middle cerebellar peduncle, the right cerebellar hemisphere, and the left cerebellar hemisphere that were not present on the previous study. OBJECTIVE: Vital Signs: Temperature 97.8 degrees, pulse 75, respiratory rate 18, blood pressure 131/72, oxygen saturation 100% on room air. HEENT: Head normocephalic, no trauma. PERRLA. Neck: Supple. No JVD. No masses. Central trachea. Chest: Clear to auscultation. No wheezing. No rales. Abdomen: Soft, nontender, nondistended. No hepatosplenomegaly. Extremities: No edema, no clubbing, no cyanosis. Neurological: He is awake, alert. He does have some residual slurred speech, but apparently it is better compared with before. The patient is oriented x3. May be mild weakness on the right side. LABORATORY: WBC 9, hemoglobin 12.5, hematocrit 39.1, platelet 388,000. Sodium 138, potassium 3.4, chloride 101, bicarbonate 25, BUN 11, creatinine 0.8, glucose 120. Hemoglobin A1c 7.2. Calcium 8.7. ASSESSMENT AND PLAN: 1. Aging subacute left pontine lacunar infarct, that is larger than the previous study, and several new acute lacunar infarcts associated with the right middle cerebellar peduncle, the right cerebellar hemisphere, and the left cerebellar hemisphere that were not present on the previous study. MRA of the brain shows significant diminished flow associated with the basilar artery as compared to the previous study, suggesting at least partial occlusion. This patient has been placed on statin, aspirin, blood pressure medication, and his blood sugar is controlled, but we will add metformin. He has been having multiple strokes, but apparently he has been taking only aspirin at home. I had a conversation with the sister, Mrs. Laura Gtz. I called her at [phone], and she states that she notes that he has been having sometimes blood pressure around the 200s, and she knows that he is diabetic. All this has been denied by the patient. His blood pressure upon admission was 150s. I put on a low dose amlodipine and now is a little bit better in the 130s. I have increased the dose of the amlodipine to try to normalize that a little bit better. I have started this patient on statins and diabetic medication as well. Continue with aspirin. 2. Hypertension. Continue with Norvasc. 3. Type 2 diabetes. Hemoglobin A1c is stable at 7.2. He does not take any kind of medication at home and given his current presentation, I will start this patient on metformin once a day, and eventually we will increase it to twice a day in the future if he tolerates that. 4. Medical noncompliance, aware. This patient has been advised to take his medications as prescribed. 5. Dizziness and double vision, likely due to these multiple lacunar strokes involving the cerebellar area. We will continue physical therapy. Hopefully, in the future, this will get better. I told the patient to cover one eye to be able to focus. cc: Faustino Villavicencio MD
[2019-03-12] MEDS: LIPITOR PO SCH (20:39)
[2019-03-13] MEDS: HUMALOG SUBQ SCH ×4 (07:26→21:37)
[2019-03-13] MEDS: NORVASC PO SCH ×2 (08:37→21:05)
[2019-03-13] MEDS: GLUCOPHAGE PO SCH (08:37)
[2019-03-13] MEDS: ASPIRIN PO SCH (08:37)
[2019-03-13 10:04] LABS: IRON SATURATION 13 %; TIBC 287 ug/dL; TOTAL IRON 37 ug/dL (53-167); UNBOUND IRON 250 ug/dL (112-346)
[2019-03-13 10:31] LABS: FERRITIN 72 ng/mL (30-400)
[2019-03-13] MEDS: FOLIC ACID PO SCH (15:30)
[2019-03-13] MEDS: LIPITOR PO SCH (21:05)
[2019-03-13] MEDS: ICAR-C PO SCH (21:05)
--- NOTE | 2019-03-13 21:09 | PROGRESS NOTE ---
DATE: 03/13/2019 SUBJECTIVE: No acute events overnight. This patient is still complaining of balance problems, double vision, and dizziness. OBJECTIVE: Vital Signs: Temperature 98.9 degrees, pulse 92, respiratory rate 18, blood pressure 118/68, oxygen saturation 99% on room air. HEENT: Head normocephalic, no trauma. PERRLA. Neck: Supple. No JVD. No masses. Central trachea. Chest: Clear to auscultation. No wheezing. No rales. Abdomen: Soft, nontender, nondistended. No hepatosplenomegaly. Neurologic: He is awake, alert. He does have some residual slurred speech, but apparently compared with a few days ago, it is a little bit better, but the patient is oriented x3. He has some weakness on the right side and imbalance. LABORATORY: Glucose 158. Iron level is 37 and folic acid is 5.4. ASSESSMENT AND PLAN: 1. Aging subacute left pontine lacunar infarct that is larger than the previous study and several new acute lacunar infarcts associated with the right middle cerebellar peduncle, the right cerebellar hemisphere, and the left cerebellar hemisphere that were not present on the previous study. I discussed the case with the patient. Probably this patient needs to go to a rehab center. I have placed already the consult for the social insurance administrator to evaluate that possibility. 2. Hypertension. Continue with Norvasc. 3. Type 2 diabetes. I have placed this patient on metformin. 4. Also have placed this patient on statins. 5. Medical noncompliance. Aware. This patient has been advised to take his medications as prescribed. 6. Dizziness and double vision due to the multiple lacunar strokes. 7. Folic acid deficiency and iron deficiency. I will replace. cc: Faustino Villavicencio MD
[2019-03-14] MEDS: HUMALOG SUBQ SCH ×5 (06:37→22:44)
[2019-03-14] MEDS: FOLIC ACID PO SCH (08:58)
[2019-03-14] MEDS: ASPIRIN PO SCH (08:58)
[2019-03-14] MEDS: GLUCOPHAGE PO SCH (08:59)
[2019-03-14] MEDS: NORVASC PO SCH ×2 (08:59→22:44)
[2019-03-14] MEDS: ICAR-C PO SCH ×2 (08:59→22:44)
[2019-03-14] MEDS: LIPITOR PO SCH (22:44)
--- NOTE | 2019-03-14 22:47 | PROGRESS NOTE ---
DATE: 03/14/2019 SUBJECTIVE: No acute events overnight. This patient is still complaining of balance problems, double vision, and dizziness. OBJECTIVE: Vital signs: Temperature 97.6 degrees, pulse 106, respiratory rate 18, blood pressure 144/73, oxygen saturation 99 on room air. HEENT: Head normocephalic, no trauma. PERRLA. Neck: Supple. No JVD. No masses. Central trachea. Chest: Clear to auscultation. No wheezing. No rales. Abdomen: Soft, nontender, nondistended. No hepatosplenomegaly. Extremities: No edema. No clubbing. No cyanosis. Neurological: The patient is awake. He has some residual slurred speech problems, but apparently compared with the beginning, it is much better. He is oriented x3. LABORATORY: No lab work done today. ASSESSMENT AND PLAN: 1. Aging subacute left pontine lacunar infarct that is larger than the previous study, and several new acute lacunar infarcts associated with right middle cerebellar peduncle, the right cerebellar hemisphere, and the left cerebellar hemisphere that were not present on the previous study. I discussed the case with the patient and he needs to go to a rehab center. He has been having problem with his balance. steam trap worker on board. 2. Hypertension. Continue with Norvasc. 3. Type 2 diabetes. I have placed this patient on metformin. 4. Also, I placed the patient on statins. 5. Medical noncompliance. Aware. This patient has been advised to follow and take care of his medications as prescribed, including aspirin which apparently he has been taking at home. 6. Dizziness and double vision due to multiple lacunar strokes. Aware. 7. Folic acid deficiency and iron deficiency. We will replace. cc: Faustino Villavicencio MD
[2019-03-15] MEDS: HUMALOG SUBQ SCH ×4 (06:42→21:46)
[2019-03-15] MEDS: ASPIRIN PO SCH (08:43)
[2019-03-15] MEDS: ICAR-C PO SCH ×2 (08:43→21:45)
[2019-03-15] MEDS: FOLIC ACID PO SCH (08:43)
[2019-03-15] MEDS: GLUCOPHAGE PO SCH (08:43)
[2019-03-15] MEDS: NORVASC PO SCH ×2 (08:43→21:45)
--- NOTE | 2019-03-15 13:18 | PROGRESS NOTE ---
DATE: 03/15/2019 SUBJECTIVE: No acute events overnight. This patient is still complaining of balance problems, double vision, and dizziness. OBJECTIVE: Vital Signs: Temperature 98 degrees, pulse 90, respiratory rate 18, blood pressure 135/72, oxygen saturation 100% on room air. HEENT: Head normocephalic. No trauma. PERRLA. Neck: Supple. No JVD. No masses. Central trachea. Chest: Clear to auscultation. No wheezing. No rales. Abdomen: Soft, nontender, nondistended. No hepatosplenomegaly. Extremities: No edema, no clubbing, no cyanosis. Neurological Examination: The patient has residual slurred speech, mild. He is oriented. He is having balance problems. Laboratory: No lab work done today. Blood sugar 153. ASSESSMENT AND PLAN: 1. Aging subacute left pontine lacunar infarct that is larger than the previous studies, and he has new several lacunar infarcts associated with right middle cerebellar peduncle, the right cerebellar hemisphere, and the left cerebellar hemisphere that were not present on the previous study. Pending rehab center placement. 2. Hypertension. Continue with Norvasc. 3. Type 2 diabetes. I have placed this patient on metformin. Also, I have placed this patient on statins. 4. Medical noncompliance. Aware. This patient has been advised to follow and take care of his medications and take the medications as prescribed. 5. Folic acid and iron deficiency. Continue to replace. cc: Faustino Villavicencio MD
[2019-03-15] MEDS: LIPITOR PO SCH (21:45)
[2019-03-16] MEDS: HUMALOG SUBQ SCH ×2 (06:49→11:19)
[2019-03-16 07:41] LABS: BASO# 0.06 X1000 (0.0-0.2); BASO% 0.6 % (0.0-0.8); EOS# 0.36 X1000 (0.0-0.7); EOS% 3.6 % (0.0-10.0); HEMATOCRIT 37.5 % (42.0-52.0); HEMOGLOBIN 11.8 g/dL (14.0-18.0); IMM GRAN# 0.02 X1000 (0.0-0.04); IMM GRAN% 0.2 % (0.0-0.5); LYMPH# 2.64 X1000 (1.2-3.4); LYMPH% 26.6 % (20.5-51.1); MCH 25.1 PG (27-31); MCHC 31.5 g/dL (33-37); MCV 79.8 FL (81-99); MONO# 0.55 X1000 (0.11-0.59); MONO% 5.5 % (1.7-9.3); MPV 10.2 FL (7.4-10.4); NEUT# 6.29 X1000 (1.4-6.5); NEUT% 63.5 % (42.2-75.2); PLT 363 X1000 (130-400); RDW 14.9 % (11.5-14.5); WBC 9.92 X1000 (4.8-10.8)
[2019-03-16 07:49] LABS: AGAP 11; BUN 7 mg/dL (8-22); CALCIUM 8.7 mg/dL (8.8-10.2); CHLORIDE 99 mmol/L (98-107); COSMO 274; CREATININE 0.8 mg/dL (0.7-1.2); ESTIMATED GFR > 60; GLUCOSE 113 mg/dL (70-104); POTASSIUM 3.6 mmol/L (3.5-5.1); SODIUM 138 mmol/L (136-145); TCO2 28 mmol/L (25-35)
[2019-03-16] MEDS: FOLIC ACID PO SCH (08:07)
[2019-03-16] MEDS: NORVASC PO SCH (08:07)
[2019-03-16] MEDS: ICAR-C PO SCH (08:07)
[2019-03-16] MEDS: ASPIRIN PO SCH (08:07)
[2019-03-16] MEDS: GLUCOPHAGE PO SCH (08:07)
--- NOTE | 2019-03-16 12:42 | DISCHARGE SUMMARY ---
ADMISSION DATE: 03/11/2019 DISCHARGE DATE: 03/16/2019 DISCHARGE DIAGNOSES: 1. Aging subacute left pontine lacunar infarct that is larger than the previous study, and new several lacunar infarcts associated with right middle cerebellar peduncle, the right cerebellar hemisphere, and the left cerebellar hemisphere. 2. Hypertension. 3. Type 2 diabetes. 4. Medical noncompliance. 5. Folic acid and iron deficiency. PROCEDURES PERFORMED: 1. Head CT scan dated 03/11/2019, impression: No evidence of acute intracranial disease. 2. Chest x-ray dated 03/11/2019, impression: No acute disease. 3. Brain MRI dated 03/12/2019, impression: Aging subacute left pontine lacunar infarct that is larger than the previous study, and several new acute lacunar infarcts associated with the right middle cerebellar peduncle, the right cerebellar hemisphere, and the left cerebellar hemisphere that were not present on the previous study. 4. Brain MRA dated 03/12/2019, impression: Significant diminished flow associated with the basilar artery as compared to the previous study, suggesting at least partial occlusion. 5. Carotid Doppler ultrasound dated 03/12/2019 shows 0% to 39% bilateral stenosis. HOSPITAL COURSE: A 63-year-old male, admitted a few times before for multiple CVAs, and he left AGAINST MEDICAL ADVICE each time. He came back to the emergency department complaining of feeling real bad, having double vision, weakness in his legs and problem with balance, and slurred speech. He reported that he got some dizziness in [employer] the day of admission on 03/11/2019, and he came to the emergency department. CT scan did not show any abnormalities. Chest x-ray did not show any acute problem. He was admitted for a neurological workup, and did an MRI on 03/12/2019 that showed aging subacute left pontine lacunar infarct that is larger than the previous study, and several new acute lacunar infarcts associated with the right middle cerebellar peduncle, the right cerebellar hemisphere, and the left cerebellar hemisphere that were not present on the previous study. As per the patient, he did not have any history of diabetes or high blood pressure, and actually he was only taking aspirin at home on and off. I contacted his sister, which is the one that lives with him, and she knew that this patient was diabetic, and she told me that sometimes the blood pressure actually can go as high as 200s, but he is not taking any medication. I talked to the patient about this, and now he has been placed on blood pressure medication, diabetes medication, statins, and aspirin. His numbers are much better, including his vital signs. He will need to go to a rehab center because of balance problems. He is still complaining of some dizziness and double vision, likely due to the stroke. I talked to him a lot about taking care of himself and taking his medications as prescribed. He seems to be stable. PHYSICAL EXAMINATION: VITAL SIGNS: Temperature 97.6 degrees, pulse 92, respiratory rate 18, blood pressure 126/85, oxygen saturation 100% on room air. HEENT: Head normocephalic. No trauma. NECK: Supple. No JVD. No masses. Central trachea. CHEST: Clear to auscultation. No wheezing. No rales. ABDOMEN: Soft, nontender, nondistended. No hepatosplenomegaly. EXTREMITIES: No edema, no clubbing, no cyanosis. NEUROLOGICAL: The patient has a residual mild slurred speech. He is oriented. He is having balance problems. LABORATORY DATA: WBC 9.9, hemoglobin 11.8, hematocrit 37.5, platelets 363,000. Sodium 138, potassium 3.6, chloride 99, bicarbonate 28, BUN 7, creatinine 0.8, glucose 113, calcium 8.7. DISCHARGE MEDICATIONS: Acetaminophen 650 mg p.o. every 6 hours as needed for fever or pain, amlodipine 5 mg p.o. b.i.d., aspirin 325 mg p.o. daily, Lipitor 40 mg p.o. at bedtime, folic acid 1 mg p.o. daily, Icar-C 1 tablet p.o. twice a day, metformin 500 mg p.o. b.i.d. TIME SPENT: Time discussing with the patient about his discharge, evaluating this patient, and doing the paperwork was about 35 minutes. cc: Faustino Villavicencio MD
[2019-03-16 13:43] VITALS: BP 146/76
--- NOTE | 2019-03-17 22:01 | Carotid Study ---
DATE: 03/12/2019 REFERRING PHYSICIAN: Erwin. READING PHYSICIAN: Rolando. ARCHITECTURAL PROJECT MANAGER: Sunil. INDICATION: Stroke and TIA. There is a comparison study on 07/28/2017. FINDINGS: There is a small amount of plaque in the left internal carotid artery. There is antegrade vertebral flow bilaterally. There are no lesions producing elevated velocities or turbulent flow. The percent stenosis is 0 to 39 percent bilaterally. Compared to the prior study, this is unchanged. INTERPRETATION: Mild plaque disease as described above, which is not hemodynamically significant. This is unchanged from prior studies. cc: Domingo Marshall MD
== END 2019-03-16 18:02 | DRG 65 ==
LOC: SUPCPDRO → ED 13:28 → 3N 18:12
PROVIDERS: ATTEND Internal Medicine